=== PATIENT | male | born 1950 | race Caucasian/White ===

== ENCOUNTER 2024-05-07 20:05 | Outpatient (CLI) | payer BC, MEDICARE, SELFPAY ==
--- OUTSIDE RECORDS SUMMARY | 2024-05-07 20:13 | XMS_ITS | Clinical Summary ---
Author Organization [facility] Address [place], [place] [address] Care Team Providers Care Packing House Supervisor Name Role Phone Jaya Coughlin MD Unavailable Abby Thomas GREEN MEAT GRADER Unavailable Unavail able Marycarmen Pimentel NP Unavailable [phone] Aristides Ventura Unavailable [phone] Natalie Artis Unavailable [phone] Maria Jin Unavailable Boyd Edwards MD Unavailable Pcp, No Primary Care Provider Unavailabl e Allergies Active Allergy Reactions Criticality Noted Date Comments Blood-Group Specific Substance Other - Describe In Comment Field 02/23/2024 Patient has an anti-M antibody. Blood products may be delayed. Draw patient 24 hours prior to transfusion. For LurnQ testing, draw one red top and two purple top tubes for all Type and Screen orders. Penicillins *Unknown - Childhood Rxn 09/02/2015 Patient tolerates amoxicillin Medications Medication Sig Dispensed Refills Start Date End Date Status vitamin e 100 unit capsule Take 1 capsule by mouth once daily. 0 09/12/2015 Active ascorbic acid, vitamin C, (Vitamin C) 1,000 mg tablet Take 1 Tablet (1,000 mg) by mouth once daily. 0 06/02/2023 Active cholecalciferol (Vitamin D-3) 2,000 unit capsule Take 4,000 units by mouth once daily. 0 06/02/2023 Active multivitamin (MVI) tablet Take 1 Tablet by mouth once daily. 0 06/02/2023 Active atorvastatin (LIPITOR) 40 mg tabletIndications :Acute on chronic systolic congestive heart failure (HC) Take 1 Tablet (40 mg) by mouth at bedtime. 90 Tablet 3 03/21/2024 Active colchicine 0.6 mg tabletIndications :Pericardial effusion Take 1 Tablet (0.6 mg) by mouth two times daily. 180 Tablet 3 03/21/2024 Active magnesium oxide (MAG-OX 400) 400 mg tabletIndications :Paroxysmal A-fib (HC) Take 1 Tablet (400 mg) by mouth once daily. 90 Tablet 3 03/21/2024 Active Eliquis 5 mg tabletIndications :Paroxysmal A-fib (HC) Take 1 Tablet (5 mg) by mouth two times daily. Hold this medication as of 03/10/24 and resume on 03/15/24. 180 Tablet 3 03/21/2024 Active lisinopriL (PRINIVIL; ZESTRIL) 2.5 mg tabletIndications :Cardiac sarcoidosis Take 1 Tablet (2.5 mg) by mouth once daily. 90 Tablet 3 03/21/2024 Active metoprolol succinate (TOPROL XL) 50 mg sustained-release tabletIndications :Paroxysmal A-fib (HC) Take 3 Tablets (150 mg) by mouth once daily. 270 Tablet 3 03/21/2024 Active potassium chloride (KLOR-CON M10) 10 mEq extended-release tablet (part/cryst)Indic ations:Cardiac sarcoidosis Take 1 Tablet (10 mEq) by mouth once daily with a meal. 90 Tablet 3 03/21/2024 Active spironolactone (ALDACTONE) 25 mg tabletIndications :Cardiac sarcoidosis Take 0.5 Tablets (12.5 mg) by mouth once daily in the morning. 45 Tablet 3 03/21/2024 Active empagliflozin (JARDIANCE) 10 mg tabletIndications :Chronic systolic heart failure (HC) Take 1 Tablet (10 mg) by mouth once daily. 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 04/09/2024 Active empagliflozin (JARDIANCE) 10 mg tabletIndications :Chronic systolic heart failure (HC) Take 1 Tablet (10 mg) by mouth once daily. 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) 10/28/2015 Overview: Coordinator, Darlene Diana [phone] Left bundle branch block (LBBB) 10/01/2015 Hyperlipidemia 09/02/2015 Tobacco use disorder 11/02/2005 Overview: Overview: LW Onset: ; Tobacco Abuse Resolved Problems Problem Noted Date Diagnosed Date Resolved Date Cardiac sarcoidosis 08/31/2016 06/27/20 17 Cellulitis and abscess of leg, except foot 08/02/2007 06/03/2023 Encounters Date Type Department Care Team Description 04/26/2024 10:30 AM CDT Home Care Visit [address] [address] Sanna Liu RN SN - OASIS DISCHARGE 04/20/2024 2:30 PM CDT Home Care Visit [facility] [address] [place] [address] Sanna Liu RN SN - HOME VISIT 04/17/2024 2:30 PM CDT Office Visit [address] [place] [address] Marcie Jarvis, SANDRA Telehealth 04/17/2024 11:30 AM CDT Home Care Visit [facility] [address] [place] [address] Sanna Liu RN SN - HOME VISIT 04/16/2024 9:47 AM CDT Anesthesia Event [facility] [address] [place] [address] Joe Menendez MD 04/16/2024 7:04 AM CDT - 04/16/2024 11:15 AM CDT Hospital Encounter [facility] [address] [place] [address] Francoise Hannon NP Discharge Disposition: Home Self Care 04/16/2024 Travel 04/12/2024 12:30 PM CDT Home Care Visit [facility] [address] [place] [address] Sanna Liu RN SN - HOME VISIT 04/10/2024 12:30 PM CDT Home Care Visit [facility] [address] [place] [address] Sanna Liu RN SN - HOME VISIT 04/09/2024 10:30 AM CDT Office Visit [facility] [address] [place] [phone] Kaila Alexis NP Follow Up 04/09/2024 8:50 AM CDT Orders Only [facility] [address] [place] [address] Lab 04/09/2024 Travel 04/09/2024 Telephone [facility] [address] [place] [phone] Francoise Hannon NP Pre Procedure; Letter; Education 04/06/2024 Telephone [facility] [address] [place] [phone] Boyd Edwards MD Follow Up (Atrial fibrillation ) 04/06/2024 Telephone [facility] [address] [place] [address] Francoise Hannon NP Error-please disregard 04/06/2024 Telephone [facility] [address] [place] [address] Kaila Alexis NP Results (BMP) 04/05/2024 2:20 PM CDT Phone Office Visit [facility] [address] [place] [address] Francoise Hannon NP Phone Visit 04/05/2024 1:10 PM CDT Orders Only [facility] [address] [place] [address] Lab 04/05/2024 11:00 AM CDT Nurse/Clinic Staff Only [facility] [address] [place] [address] Cardiovascular Diagnostic Testing (EKG) 04/05/2024 Travel 04/04/2024 1:30 PM CDT Home Care Visit [address] [address] Sanna Liu RN SN - HOME VISIT 04/04/2024 Telephone [facility] [address] [place] [address] Boyd Edwards MD Results (Holter) 04/02/2024 2:00 PM CDT Home Care Visit [address] [address] Sanna Liu RN SN - HOME VISIT 03/29/2024 Home Care Visit [address] [address] Coral Cisse RN SN - MISSED VISIT 03/28/2024 3:00 PM CDT Home Care Visit [place] [address] [place] [address] Alannah Clifford, PT PT - INITIAL ASSESSMENT 03/28/2024 8:25 AM CDT - 03/28/2024 11:59 PM CDT Hospital Encounter [facility] [address] [place] [address] 03/28/2024 Refill [facility] [address] [place] [phone] Kaila Alexis, SANRDA Refill Request 03/27/2024 2:00 PM CDT Nurse/Clinic Staff Only [address] [phone] Device Check (Return) 03/27/2024 Telephone [facility] [address] [place] [phone] Boyd Edwards MD Home Care ([facility] Orders Signed) 03/26/2024 1:15 PM CDT Nurse/Clinic Staff Only [address] [phone] Ivoryt, Vanessa Clinical Device Check (--24-hour holter placement) 03/26/2024 Travel 03/26/2024 Home Care Visit [address] [address] Coral Cisse RN SN - MISSED VISIT 03/25/2024 Home Care Visit [address] [address] Cindy Carolina, PT CARE COORDINATION 03/23/[address] [phone] Mary Acevedo MD Failed Appointment 03/22/2024 11:30 AM CDT Home Care Visit [address] [address] Shantel Miller, ALCIRA SN - OASIS RESUMPTION OF CARE 03/21/2024 1:00 PM CDT Office Visit [address] [place] [address] Kaila Alexis, SANDRA Concerns (Madinat denies chest pain and dizziness /Patient states he has some shortness of breath with exertion ) 03/20/2024 11:20 AM CDT Orders Only [address] [address] Lab, Appv Lab 03/20/2024 10:45 AM CDT Office Visit [address] [address] Mary Acevedo MD Hospital F/U (Patient was seen in ED 03/13 for Acute systolic (congestive) heart failure.); Establish Care (Patient wants to establish care. ) 03/20/2024 Travel 03/19/2024 Home Care Visit [address] [address] Coral Cisse, RN CARE COORDINATION 03/19/2024 Patient Outreach [address] [address] Marisa Rolon, ALCIRA Primary RN Care Management (LACE 78); Hospital F/U (DOD: 03/16/24, Dx: Acute on chronic systolic heart failure) 03/18/2024 Home Care Visit [address] [address] Destini Sanchez RN CARE COORDINATION 03/18/2024 Home Care Visit [address] [address] Park العلي RN CARE COORDINATION 03/15/[address] [address] Junie Benavides, supervisor paste plant (notification) 03/15/2024 Home Care Visit [address] [address] Sanna Liu RN CARE TRANSITION NOTE 03/15/2024 Home Care Visit [address] [address] Sanna Liu RN SN - OASIS TRANSFER 03/13/2024 3:05 PM CDT - 03/16/2024 3:00 PM CDT Hospital Encounter [facility] [address] [place] [address] Austad, Lory Owusu MD [facility], Hospitalist [facility] Yeison, MD Mian Fisher Ephraim, MD Acute systolic heart failure (HC) (Primary Dx); Acute systolic (congestive) heart failure (HC); 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 77); Hospital F/U (DOD: 03/10/24, Dx: Pericardial effusion with cardiac tamponade) 03/12/2024 1:00 PM CDT Home Care Visit [address] [address] Angelina Murphy, RN SN - OASIS RESUMPTION OF CARE 03/10/2024 Home Care Visit [address] [address] Zainab Sen RN SN - OASIS TRANSFER 03/09/2024 3:00 AM CDT Home Care Visit [address] [address] Alannah Clifford, PT PT - MISSED VISIT 03/09/2024 Telephone [facility] [address] [place] [phone] Boyd Edwards MD Follow Up (Orders for ) 03/08/2024 11:22 AM CDT - 03/10/2024 7:42 PM CDT Hospital Encounter [facility] [address] [place] [address] Nick Ugalde DO Dahl, Pb Guerrero MD [facility], Hospitalist [facility] Vlad, MD Wolf Montero Janet Leslie, MD Pericardial tamponade (Primary Dx); Paroxysmal A-fib (HC); Cardiac sarcoidosis Discharge Disposition: Home Self Care 03/08/2024 7:14 AM CDT - 03/08/2024 11:21 AM CDT Hospital Encounter [facility] [address] [place] [address] Petey Caicedo MBBS Pericardial effusion 03/08/2024 Travel 03/08/2024 Telephone [facility] [address] [place] [phone] Petey Caicedo MBBS Results (Echo) 03/07/2024 2:00 PM CDT Home Care Visit [address] [address] Alannah Clifford, PT PT - HOME VISIT 03/07/2024 12:30 PM CDT Home Care Visit [place] [address] [place] [address] Sanna Liu RN SN - HOME VISIT 03/07/2024 Travel 03/06/2024 3:00 PM CDT Office Visit [facility] [address] [place] [phone] Petey Caicedo MBBS Consult (NTU, labs 1 hr prior 3-5 day post hospital follow up per Jaylon); Concerns (very concerned with SOB, Chest discomfort, fatigued/low stamina ) 03/06/2024 2:00 PM CDT Orders Only [facility] [address] [place] [address] Lab 03/06/2024 12:15 PM CDT Home Care Visit [address] [address] Esthela Foss, RN SN - MISSED VISIT 03/06/2024 Travel 03/03/2024 12:00 PM CDT Home Care Visit [address] [address] Jayashree Woods LPN SHEET METAL FORMER - HOME VISIT 03/03/2024 Patient Outreach [facility] Care Management - Advanced Care Team [address] [place] [address] Crystal Mobley Complex Care Management (CCM Engagement Outreach) 03/02/2024 3:00 PM CDT Home Care Visit [address] [address] Alannah Clifford, PT PT - INITIAL ASSESSMENT 03/02/2024 Home Care Visit [address] [address] Junie Benavides, RN CARE COORDINATION 03/02/2024 Travel 03/01/2024 10:00 AM CDT Home Care Visit [address] [address] Junie Benavides, RN SN - OASIS START OF CARE 03/01/[address] [address] Junie Benavides supervisor paste plant (Orders, medication clarification) 03/01/2024 Plan of Care Documentation [address] [address] 02/29/2024 Home Care Visit [address] [address] Jennifer Red, RN CARE COORDINATION 02/28/2024 Home Care Visit [address] [address] Coral Cisse, RN CARE COORDINATION 02/28/2024 Patient Outreach [facility] Care Management - Care Management Navigation/[place] [id number] [place] [address] Mimi Palacioshel Care Management Intake (Identification Date/) 02/27/2024 Telephone [facility] [address] [facility] [address] [place] [address] Boyd Edwards MD Medication Management (Metoprolol Dose); Follow Up 02/27/2024 Refill [facility] [address] [facility] [address] [place] [address] Jaya Coughlin MD Refill Request (Metoprolol Succinate) 02/27/2024 Telephone [facility] [address] [facility] [address] [place] [address] Petey Caicedo MBBS Lab (BMP, pro-BNP, Mag) 02/27/2024 Telephone [facility] [address] [facility] [address] [place] [address] Angélica Iyer PA Appointment (Post hospital F/U) 02/27/2024 Procedure Only [facility] [address] [facility] [address] [place] [address] Device Check (Remote [employer] ICD... 02/27/2024 Patient Outreach [facility] [address] [place] [phone] Marisa Rolon, ALCIRA Primary RN Care Management (LACE 56); Hospital F/U (DOD: 02/26/24, Dx: S/P ablation of ventricular arrhythmia) 02/27/2024 Refill [facility] [address] [facility] [address] [place] [address] Jaya Coughlin MD Refill Request (Magnesium Oxide) 02/25/2024 Travel 02/24/2024 Procedure Only [facility] [address] [place] [address] Device Check (Remote [employer] ICD... 02/23/2024 Procedure Only [facility] [address] [place] [address] Device Check (Remote Bi-Ventricular ICD La... 02/22/2024 10:55 AM CDT Anesthesia Event [facility] [address] [place] [address] Marcie Garduno MD 02/22/2024 7:19 AM CDT - 02/26/2024 12:37 PM CDT Hospital Encounter [facility] [address] [place] [address] Boyd Edwards MD Weiss, MD Steven Scott, Rhina Carrasco CRNA S/P ablation of ventricular arrhythmia (Primary Dx); Chronic combined systolic and diastolic heart failure (HC); PVC's (premature ventricular contractions); Pericardial effusion Discharge Disposition: Home Health 02/21/2024 10:05 AM CDT - 02/21/2024 11:59 PM CDT Hospital Encounter [facility] [address] [place] [address] Boyd Edwards MD Frequent PVCs; NSVT (nonsustained ventricular tachycardia) (HC); VT (ventricular tachycardia) (HC); Abnormal result of other cardiovascular function study 02/21/2024 Travel 02/21/2024 Procedure Only [facility] [address] [place] [address] Device Check (Pre MRI Checklist) 02/20/2024 Telephone [facility] [address] [place] [address] Boyd Edwards MD Results (Abnormal Echo with Contrast) 02/17/2024 1:56 PM CDT - 02/17/2024 11:59 PM CDT Hospital Encounter [facility] [address] [place] [address] Boyd Edwards MD Frequent PVCs 02/17/2024 Travel 02/14/2024 Telephone [facility] [address] [place] [address] Boyd Edwards MD Follow Up 02/13/2024 9:56 AM CDT - 02/13/2024 11:59 PM CDT Hospital Encounter [facility] [address] [place] [address] Boyd Edwards MD Frequent PVCs; On amiodarone therapy 02/13/2024 Travel 02/09/2024 Telephone [facility] [address] [place] [phone] Boyd Edwards MD Pre Procedure (VT ablation on 02/22/2024); Letter; Education 02/07/2024 9:00 AM CDT Office Visit [facility] [address] [place] [phone] Boyd Edwards MD Consult (New Pt, CELE per Dr Coughlin for high PVC burden, device & ekg prior) 02/07/2024 8:30 AM CDT Nurse/Clinic Staff Only [facility] [address] [place] [address] Cardiovascular Diagnostic Testing (EKG/) 02/07/2024 8:00 AM CDT Procedure Only [facility] [address] [place] [address] Device Check (In-Clinic Med[employer]onic Pacemake... 02/07/2024 Travel 02/06/2024 Orders Only [facility] [address] [place] [address] Jaya Coughlin MD <No scans attached> 02/06/2024 Telephone [facility] [address] [place] [address] Jaya Coughlin MD Results (Holter Monitor and EP consult) from Last 3 Months Immunizations Name Administration Dates Next Due COVID-19 vaccine (Moderna 100mcg/0.5mL) MARANDA BARRAGAN 02/24/2021,01/27/2021 Influenza, High-dose Inactivated 07/18/2017,07/17 Td (Age >=7 Years) 10/25/2001 Tdap 12/25/2022 Family History Medical History Relation Name Comments Cancer Mother unknown Relation Name Status Comments Father Mother Sister Social History Tobacco Use Types Packs/Day Years Used Date Smoking Tobacco: Former Cigarettes 1.5 50 1 - 07/31/2013 Passive Smoke Exposure: Never Smokeless Tobacco: Never Tobacco Cessation:Counseling Given: Not Answered Alcohol Use Standard Drinks/Week Comments Yes 3 (1 standard drink = 0.6 oz pur e alcohol) Social Connections Answer Date Recorded Frequency of Communication with Friends and Fami ly 0 07/15/2023 Financial Resource Strain Answer Date R ecorded Difficulty of Paying Living Expenses 3 07/15/2023 Difficulty of Paying Living Expenses Not on file 07/15/2023 Food Insecurity Answer Date Recorded Worried About Running Out of Food in the Last Ye ar 1 07/15/2023 Transportation Needs Answer Date Record ed Lack of Transportation (Medical) 1 07/15/2023 Housing Stability Answer Date Recorded Unable to Pay for Housing in the Last Year 1 07/15/2023 Sex and Gender Information Value Date Recorded Sex Assigned at Not on file Gender Identity Not on file Sexual Orientation Not on file Obstetrics History Last Filed Vital Signs Vital Sign Reading Time Taken Comments Blood Pressure 100/70 04/26/2024 11:19 AM CDT Pulse 85 04/26/2024 11:19 AM CDT Temperature 36.7 ??C (98.1 ??F) 04/26/2024 1 1:19 AM CDT Respiratory Rate 18 04/26/2024 11:1 9 AM CDT Oxygen Saturation 98% 04/26/2024 11: 19 AM CDT Inhaled Oxygen Concentration - - Weight 102.2 kg (225 lb 6.4 oz) 024 11:19 AM CDT Height 177.8 cm (5' 10) 04/16/2024 7:52 AM CDT Body Mass Index 32.34 04/16/2024 7:52 AM CDT Plan of Treatment Upcoming Encounters Date Type Department Care Team (Late st Contact Info) Description 05/11/2024 Procedure Only [facility] [address] [place] [address] 06/20/2024 1:15 PM CDT Phone Office Visit [facility] [address] [place] [phone] Marcie Jarvis, SANDRA [address] [place] [address] Health Maintenance Due Date Last Done Comments Pneumococcal series for age 65+ (1 of 2 - PCV) 1954 Depression screening for age 12+ 1960 Hepatitis C screening for ag e 18-79 1966 Colonoscopy through age 75 1993 Zoster (shingles) series for age 50+ (1 of 2) 1998 Medicare Wellness for age 65+ 2013 COVID-19 vaccine series ( season) 2023 10/29/2021, 02/24/2021, 01/27/2021 Influenza for age 65+ 06/17/2024 07/18/2017, [address] (for lung CA) ag e 50-80 03/13/2025 03/13/2024, 08/06/2016 BMI (ht and wt on same day) for age 18+ 04/05/2025 04/05/2024, 03/21/2024, 03/06/2024, Additional history exists Lipids for age 45-75 03/01/2027 03/01/2022, 04/21/20 16 Tetanus booster 12/25/2032 12/25/2022, 10/25/2001 Tdap Completed 12/25/2022 Medical Devices Implanted Type Area Compliance Professional Device Identifier Shelf Expiration Date Model / Serial / Lot Big Data Hadoop Developer-D-10/27/2015 Implanted:10/27 (Quantity not on file) MUSIC SUPERVISOR-D [employer] AUTOG [id number] / / Procedures Procedure Name Priority Date/Time Associated Diagnosis Comments EKG 12 LEAD Post Op 04/16/2024 10:04 AM CDT SCAN-CARDIAC STRIP 04/16/2024 10 :02 AM CDT POTASSIUM Preop 04/16/2024 7:25 AM CDT EKG 12 LEAD Preop 04/16/2024 7:20 AM CDT SCAN-CARDIAC STRIP 04/16/2024 12 :00 AM CDT MAGNESIUM STAT 04/09/2024 9:19 AM CDT Chronic combined systolic and diastolic heart failure (HC) PRO-BNP STAT 04/09/2024 9:19 AM CDT Chronic combined systolic and diastolic heart failure (HC) BASIC METABOLIC PANEL STAT 04/09/2024 9:19 AM CDT Chronic combined systolic and diastolic heart failure (HC) BASIC METABOLIC PANEL Routine 04/05/2024 11:45 AM CDT Acute on chronic systolic congestive heart failure (HC) EKG 12 LEAD Routine 04/05/2024 11:20 AM CDT Paroxysmal A-fib (HC) HOLTER MONITOR 24 HOURS Routine 03/30/2024 Chronic combined systolic and diastolic heart failure (HC) PVC's (premature ventricular contractions) NSVT (nonsustained ventricular tachycardia) (HC) SCAN-HOLTER MONITOR 03/27/2024 1 2:00 AM CDT ISTAT CHEM 8 CLINIC ONLY AND [facility] Routine 03/20/2024 11:14 AM CDT Acute on chronic congestive heart failure, unspecified heart failure type (HC) MAGNESIUM STAT 03/20/2024 11:08 AM CDT Acute on chronic systolic congestive heart failure (HC) PRO-BNP STAT 03/20/2024 11:08 AM CDT Acute on chronic systolic congestive heart failure (HC) BASIC METABOLIC PANEL STAT 03/20/2024 11:08 AM CDT Acute on chronic systolic congestive heart failure (HC) SCAN-CARDIAC STRIP 03/16/2024 7: 45 AM CDT POTASSIUM Early AM 03/16/2024 7:23 AM CDT MAGNESIUM Early AM 03/16/2024 7:23 AM CDT SCAN-CARDIAC STRIP 03/16/2024 12 :00 AM CDT SCAN-CARDIAC STRIP 03/15/2024 3: 32 PM CDT SCAN-CARDIAC STRIP 03/15/2024 1: 41 PM CDT POTASSIUM Timed 03/15/2024 1:33 PM CDT SEDIMENTATION RATE Early AM 03/15/2024 6: 39 AM CDT CREATININE Early AM 03/15/2024 6:38 AM CDT POTASSIUM Early AM 03/15/2024 6:38 AM CDT MAGNESIUM Early AM 03/15/2024 6:38 AM CDT SCAN-CARDIAC STRIP 03/15/2024 12 :51 AM CDT SCAN-CARDIAC STRIP 03/14/2024 4: 00 PM CDT ECHO TTE LIMITED W CONTRAST Routine 03/14/2024 2:09 PM CDT SCAN-CARDIAC STRIP 03/14/2024 12 :11 PM CDT C-REACTIVE PROTEIN CELE 03/14/2024 5: 58 AM CDT MAGNESIUM Early AM 03/14/2024 5:58 AM CDT CREATININE Early AM 03/14/2024 5:58 AM CDT POTASSIUM Early AM 03/14/2024 5:58 AM CDT SODIUM Early AM 03/14/2024 5:58 AM CDT PLATELET COUNT Early AM 03/14/2024 5:57 AM CDT HEMOGLOBIN Early AM 03/14/2024 5:57 AM CDT WHITE BLOOD COUNT Early AM 03/14/2024 5:5 7 AM CDT SCAN-CARDIAC STRIP 03/14/2024 3: 57 AM CDT SCAN-CARDIAC STRIP 03/13/2024 10 :[address] CHEST PE STUDY STAT 03/13/2024 5:3 4 PM CDT TROPONIN T (HS) ONE TIME Timed 03/13/2024 4:20 PM CDT XR CHEST 1 VIEW PORTABLE STAT 03/13/2024 4:01 PM CDT EXTRA TUBE BLUE Today 03/13/2024 2:08 PM CDT BASIC METABOLIC PANEL STAT 03/13/2024 2:08 PM CDT TROPONIN T (HS) ACUTE W/2HR REFLEX STAT 03/13/2024 2:08 PM CDT PRO-BNP STAT 03/13/2024 2:08 PM CDT CBC W PLT NO DIFF STAT 03/13/2024 2:0 8 PM CDT EKG 12 LEAD STAT 03/13/2024 2:02 PM CDT SCAN-CARDIAC STRIP 03/10/2024 5: 20 PM CDT SCAN-CARDIAC STRIP 03/10/2024 10 :54 AM CDT SCAN-CARDIAC STRIP 03/09/2024 7: 51 PM CDT GLUCOSE METER Timed 03/09/2024 5:10 PM CDT EKG 12 LEAD Early AM 03/09/2024 9:00 AM CDT ECHO TTE LIMITED W CONTRAST W COLOR W DOPPLER Routine 03/09/2024 8:51 AM CDT SCAN-CARDIAC STRIP 03/09/2024 2: 59 AM CDT SCAN-ELECTROCARDIOGRAM EKG 03/09/2024 12:00 AM CDT ECHO TTE LIMITED WO CONTRAST W BUBBLE Routine 03/08/2024 6:36 PM CDT PATH NON SPEECH PATHOLOGIST ASSISTANT CYTOLOGY Today 03/08/2024 6:33 PM CDT PH,BODY FLUID Today 03/08/2024 6:00 PM CDT AMYLASE,BODY FLUID Today 03/08/2024 6: 00 PM CDT PROTEIN,BODY FLUID Today 03/08/2024 6: 00 PM CDT GLUCOSE,BODY FLUID Today 03/08/2024 6: 00 PM CDT ANAEROBIC CULTURE Today 03/08/2024 6:0 0 PM CDT AFB CULTURE, STAIN Today 03/08/2024 6: 00 PM CDT FUNGUS CULT, OTHER SOURCE Today 03/08/2024 6:00 PM CDT BODY FLUID CULTURE,STAIN (AEROBIC) Today 03/08/2024 6:00 PM CDT SPECIFIC GRAVITY,BODY FL Today 03/08/2024 6:00 PM CDT BODY FLUID CELL COUNT/DIF Today 03/08/2024 6:00 PM CDT CVL OTHER PROCEDURE Routine 03/08/2024 5 :22 PM CDT SCAN-CARDIAC STRIP 03/08/2024 4: 53 PM CDT SCAN-CARDIAC STRIP 03/08/2024 4: 53 PM CDT TROPONIN T (HS) ONE TIME Timed 03/08/2024 2:58 PM CDT XR CHEST 1 VIEW PORTABLE STAT 03/08/2024 12:33 PM CDT PRO-BNP CELE 03/08/2024 12:25 PM CDT CBC WITH AUTO DIFFERENTIAL STAT 03/08/2024 12:25 PM CDT TROPONIN T (HS) ACUTE W/2HR REFLEX STAT 03/08/2024 12:25 PM CDT PROTIME-INR STAT 03/08/2024 12:25 PM CDT BASIC METABOLIC PANEL STAT 03/08/2024 12:25 PM CDT CBC WITH AUTO DIFFERENTIAL STAT 03/08/2024 12:25 PM CDT EKG 12 LEAD STAT 03/08/2024 12:13 PM CDT ECHO TTE LIMITED WO CONTRAST W COLOR W LTD DOPPLER CELE 03/08/2024 8:31 AM CDT Pericardial effusion MAGNESIUM STAT 03/06/2024 2:07 PM CDT Chronic combined systolic and diastolic heart failure (HC) PRO-BNP STAT 03/06/2024 2:07 PM CDT Chronic combined systolic and diastolic heart failure (HC) BASIC METABOLIC PANEL STAT 03/06/2024 2:07 PM CDT Chronic combined systolic and diastolic heart failure (HC) SCAN-CARDIAC STRIP 02/26/2024 8: 07 AM CDT SCAN-CARDIAC STRIP 02/26/2024 1: 04 AM CDT SCAN-CARDIAC STRIP 02/25/2024 7: 35 PM CDT SCAN-CARDIAC STRIP 02/25/2024 10 :38 AM CDT EKG 12 LEAD STAT 02/25/2024 10:31 AM CDT EKG 12 LEAD STAT 02/25/2024 10:12 AM CDT ECHO TTE LIMITED WO CONTRAST W COLOR W LTD DOPPLER Routine 02/25/2024 9:51 AM CDT CBC W PLT NO DIFF Early AM 02/25/2024 6:3 4 AM CDT BASIC METABOLIC PANEL Early AM 02/25/2024 6:34 AM CDT SCAN-CARDIAC STRIP 02/25/2024 12 :05 AM CDT SCAN-CARDIAC STRIP 02/24/2024 3: 35 PM CDT SCAN-CARDIAC STRIP 02/24/2024 1: 09 PM CDT SCAN-CARDIAC STRIP 02/24/2024 8: 00 AM CDT CBC W PLT NO DIFF Early AM 02/24/2024 5:1 1 AM CDT BASIC METABOLIC PANEL Early AM 02/24/2024 5:11 AM CDT SCAN-CARDIAC STRIP 02/24/2024 12 :05 AM CDT ECHO TTE LIMITED W CONTRAST W COLOR W DOPPLER Routine 02/23/2024 3:40 PM CDT URINALYSIS MICROSCOPIC Timed 1:25 PM CDT URINE CULTURE Today 02/23/2024 1:25 PM CDT UA W/ SEDIMENT EXAM REFLEXED PER CRITERIA Today 02/23/2024 1:25 PM CDT XR CHEST 1 VIEW PORTABLE Routine 02/23/2024 1:02 PM CDT EKG 12 LEAD CELE 02/23/2024 12:53 PM CDT SCAN-CARDIAC STRIP 02/23/2024 10 :37 AM CDT ARTERIAL BLOOD GAS CELE 02/23/2024 8: 00 AM CDT CBC W PLT NO DIFF Today 02/23/2024 7:3 3 AM CDT BASIC METABOLIC PANEL Today 02/23/2024 7:33 AM CDT EKG 12 LEAD Early AM 02/23/2024 6:22 AM CDT SCAN-CARDIAC STRIP 02/23/2024 12 :46 AM CDT SCAN-PACER 02/23/2024 12:00 AM CDT SCAN-PACER 02/23/2024 12:00 AM CDT CBC W PLT NO DIFF Timed 02/22/2024 11: 38 PM CDT GLUCOSE METER Timed 02/22/2024 7:54 PM CDT HCHG ACTIVATED CLOTTING TM CV Timed 02/22/2024 5:34 PM CDT HCHG ACTIVATED CLOTTING TM CV Timed 02/22/2024 5:18 PM CDT HCHG ACTIVATED CLOTTING TM CV Timed 02/22/2024 5:02 PM CDT HCHG ACTIVATED CLOTTING TM CV Timed 02/22/2024 4:46 PM CDT ARTERIAL LINE Routine 02/22/2024 4:03 PM CDT ARTERIAL LINE Routine 02/22/2024 4:03 PM CDT ARTERIAL LINE Routine 02/22/2024 4:03 PM CDT ARTERIAL LINE Routine 02/22/2024 4:03 PM CDT ARTERIAL LINE Routine 02/22/2024 4:03 PM CDT ARTERIAL LINE Routine 02/22/2024 4:03 PM CDT HCHG ACTIVATED CLOTTING TM CV Timed 02/22/2024 2:56 PM CDT HCHG ACTIVATED CLOTTING TM CV Timed 02/22/2024 2:40 PM CDT HCHG ACTIVATED CLOTTING TM CV Timed 02/22/2024 2:08 PM CDT HCHG ACTIVATED CLOTTING TM CV Timed 02/22/2024 1:46 PM CDT HCHG ACTIVATED CLOTTING TM CV Timed 02/22/2024 1:16 PM CDT HCHG ACTIVATED CLOTTING TM CV Timed 02/22/2024 12:50 PM CDT HCHG ACTIVATED CLOTTING TM CV Timed 02/22/2024 12:30 PM CDT HCHG ACTIVATED CLOTTING TM CV Timed 02/22/2024 12:14 PM CDT HCHG ACTIVATED CLOTTING TM CV Timed 02/22/2024 11:59 AM CDT EP STUDY /ABLATION Routine 02/22/2024 11 :43 AM CDT ENDOTRACHEAL TUBE Routine 02/22/2024 11: 23 AM CDT ENDOTRACHEAL TUBE Routine 02/22/2024 11: 23 AM CDT ENDOTRACHEAL TUBE Routine 02/22/2024 11: 23 AM CDT ARC STAT CHARGE CELE 02/22/2024 10:13 AM CDT ARC ANTIGEN TYPE CELE 02/22/2024 10:1 3 AM CDT RED BLOOD CELLS EA UNIT CELE 02/22/2024 10:13 AM CDT DONOR ANTIGEN CELE 02/22/2024 10:13 AM CDT PREWARM TECHNIQUE CELE 02/22/2024 10: 13 AM CDT PANEL-ABBREVIATED CELE 02/22/2024 10: 13 AM CDT ANTIBODY IDENTIFICATION EACH PANEL CELE 02/22/2024 10:13 AM CDT RED BLOOD CELLS EA UNIT CELE 02/22/2024 10:13 AM CDT M ANTIGEN TYPE LAB USE ONLY CELE 02/22/2024 10:13 AM CDT ANTIBODY IDENTIFICATION LAB USE ONLY CELE 02/22/2024 10:13 AM CDT TYPE & SCREEN CELE 02/22/2024 10:13 AM CDT EKG 12 LEAD Preop 02/22/2024 7:39 AM CDT CBC W PLT NO DIFF Preop 02/22/2024 7:3 7 AM CDT BASIC METABOLIC PANEL Preop 02/22/2024 7:37 AM CDT SCAN-CARDIAC STRIP 02/22/2024 12 :00 AM CDT SCAN-CARDIAC STRIP 02/22/2024 12 :00 AM CDT SCAN-CARDIAC STRIP 02/22/2024 12 :[address] CARDIAC MORPHOLOGY W DUAL READ STAT 02/21/2024 10:55 AM CDT Frequent PVCs NSVT (nonsustained ventricular tachycardia) (HC) VT (ventricular tachycardia) (HC) Abnormal result of other cardiovascular function study CREATININE,ISTAT Routine 02/21/2024 10:1 8 AM CDT ECHO TECHNICAL REPEAT CELE 02/17/2024 2:59 PM CDT Frequent PVCs ECHO TTE COMPLETE WO CONTRAST CELE 02/13/2024 10:55 AM CDT 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 Interpretation Atrial-sense d ventricular- paced rhythm Biventricula r pacemaker detected Abnormal ECG BEYOND NOW Ventricular Rate 73 BPM BEYOND NOW Atrial Rate 73 BPM BEYOND NOW P-R Interval 152 ms BEYOND NOW QRS Duration 160 ms BEYOND NOW QT 506 ms BEYOND NOW QTc 557 ms BEYOND NOW P [place] 49 degrees BEYOND NOW R [place] 266 degrees BEYOND NOW T [place] 75 degrees BEYOND NOW 04/16/2024 10:0 4 AM CDT 04/16/2024 10:09 AM CDT Francoise Hannon NP EKG ORD BEYOND NOW [place], [place] * SCAN-CARDIAC STRIP (04/16/2024 10:02 AM CDT) Scanner OTHER * POTASSIUM (04/16/2024 7:25 AM CDT) Only the most recent of5 resultswithin the time period is included. POTASSIUM 4.1 3.5 - 5.1 mmol/L 04/16/2024 8:06 AM CDT [facility] Blood BLOOD SPECIMEN / Unknown Venipuncture / Unknown 04/16/2024 7:25 AM CDT 04/16/2024 7:34 AM CDT Francoise Hannon NP CHEMISTRY [facility] SENDOUT INTERNAL ZIP [phone] [place] [address] * SCAN-CARDIAC STRIP (04/16/2024 12:00 AM CDT) Narrative 04/16/2024 12:00 AM CDT Ordered by an unspecified provider. Other Clinical Staff OTHER * (ABNORMAL) PRO-BNP (04/09/2024 9:19 AM CDT) Only the most recent of5 resultswithin the time period is included. PRO-BNP 956(H) <450 pg/mL 04/09/2024 10:15 AM CDT [facility] Blood BLOOD SPECIMEN / Unknown Venipuncture / Unknown 04/09/2024 9:19 AM CDT 04/09/2024 9:20 AM CDT Narrative [facility] - 04/09/2024 10:15 AM CDT The following cut-points have been suggested for the use of proBNP for the diagnostic evaluation of heart failure (HF) in patient with acute dyspnea. Patients with eGFR >= 60 Diagnosis (rule in CHF) ? <50 Years Old ?450 pg/mL 50 - 75 Years Old ?900 pg/mL >75 Years Old ? 1800 pg/mL Exclusion (rule out CHF) Age Independent ?300 pg/mL A cutoff of 1200 pg/mL for patients with an eGFR <60 yields a diagnostic sensitivity of 89% and specificity of 72% for acute congestive heart failure. ? Kaila Alexis [employer] Performing Organization Address [facility]/ZIP Co de Phone Number [facility] SENDOUT INTERNAL ZIP [phone] [place] [address] * (ABNORMAL) MAGNESIUM (04/09/2024 9:19 AM CDT) Only the most recent of6 resultswithin the time period is included. MAGNESIUM 2.6(H) 1.6 - 2.4 mg/dL 04/09/2024 10:12 AM CDT [facility] Blood BLOOD SPECIMEN / Unknown Venipuncture / Unknown 04/09/2024 9:19 AM CDT 04/09/2024 9:20 AM CDT Kaila Alexis NP CHEMISTRY Performing Organization Address [facility] Co de Phone Number [facility] SENDOUT INTERNAL ZIP [phone] [place] [address] * (ABNORMAL) BASIC METABOLIC PANEL (04/09/2024 9:19 AM CDT) Only the most recent of10 resultswithin the time period is included. SODIUM 138 136 - 145 mmol/L 04/09/2024 10:12 AM T [facility] POTASSIUM 4.1 3.5 - 5.1 mmol/L 04/09/2024 10:12 AM T [facility] CHLORIDE 99 98 - 107 mmol/L 04/09/2024 10:12 AM T [facility] CO2,TOTAL 30(H) 22 - 29 mmol/L 04/09/2024 10:12 AM T [facility] ANION GAP 9 5 - 18 04/09/2024 10:12 AM T [facility] GLUCOSE 130(H) 70 - 99 mg/dL 04/09/2024 10:12 AM T [facility] CALCIUM 9.2 8.8 - 10.2 mg/dL 04/09/2024 10:12 AM T [facility] BUN 18 8 - 23 mg/dL 04/09/2024 10:12 AM CDT [facility] CREATININE 1.28(H) 0.70 - 1.20 mg/dL 04/09/2024 10:12 AM CDT [facility] BUN/CREAT RATIO 14 10 - 20 4 10:12 AM CDT [facility] eGFR 58(L) >90 mL/min/1.7 3m2 04/09/2024 10:12 AM CDT [facility] Comment:As of 2021, eG FR is calculated by the CKD-EPI creatinine equation without race adjustment. ??eGFR can be influenced by muscle mass, exercise, and diet. ??The reported eGFR is an estimation only and is only applicable if the renal function is stable. Blood BLOOD SPECIMEN / Unknown Venipuncture / Unknown 04/09/2024 9:19 AM CDT 04/09/2024 9:20 AM CDT Kaila Alexis NP CHEMISTRY [facility] SENDOUT INTERNAL ZIP [phone] [place] [address] * HOLTER MONITOR 24 HOURS (03/30/2024) Boyd Edwards MD CARDIAC SERVICES ORD * SCAN-HOLTER MONITOR (03/27/2024 12:00 AM CDT) Scanner OTHER * (ABNORMAL) ISTAT CHEM 8 (SELECTED SITES ONLY) (03/20/2024 11:14 AM CDT) SODIUM, POCT 136 135 - 145 mmol/L 03/20/2024 11:22 AM CDT [facility] POTASSIUM, POCT 4.2 3.5 - 5.0 mmol/L 03/20/2024 11:22 AM CDT [facility] CHLORIDE, POCT 98 98 - 107 mmol/L 03/20/2024 11:22 AM CDT [facility] CO2,TOTAL, POCT 28 21 - 31 mmol/L 03/20/2024 11:22 AM CDT [facility] ANION GAP, POCT 16 5 - 18 4 11:22 AM CDT [facility] GLUCOSE, POCT 173(H) 70 - 99 mg/dL 03/20/2024 11:22 AM CDT [facility] IONIZED CALCIUM, POCT 1.12(L) 1.15 - 1.27 mmol/L 03/20/2024 11:22 AM CDT [facility] BUN, POCT 30(H) 8 - 25 mg/dL 03/20/2024 11:22 AM CDT [facility] CREATININE, POCT 1.40(H) 0.57 - 1.11 mg/dL 03/20/2024 11:22 AM CDT [facility] Comment:Caution: Patients ta susan Hydroxyurea have falsely increased iStat Creatinine results. Verify creatinine results ordering a Creatinine (70925.2) BUN/CREAT RATIO, POCT 21(H) 10 - 20 03/20/2024 11:22 AM CDT [facility] eGFR 52(L) >90 mL/min/1.7 3m2 03/20/2024 11:22 AM CDT [facility] Comment:As of 2021, eG FR is calculated by the CKD-EPI creatinine equation without race adjustment. eGFR can be influenced by muscle mass, exercise, and diet. The reported eGFR is an estimation only and is only applicable if the renal function is stable. Blood BLOOD SPECIMEN / Unknown 03/20/2024 11:14 AM CDT 03/20/2024 11:22 AM CDT Mary Acevedo MD CHEMISTRY [facility] [id number] [place] [address], * SCAN-CARDIAC STRIP (03/16/2024 7:45 AM CDT) Scanner OTHER * SCAN-CARDIAC STRIP (03/16/2024 12:00 AM CDT) Scanner OTHER * SCAN-CARDIAC STRIP (03/15/2024 3:32 PM CDT) Scanner OTHER * SCAN-CARDIAC STRIP (03/15/2024 1:41 PM CDT) Scanner OTHER * SEDIMENTATION RATE (03/15/2024 6:39 AM CDT) SEDIMENTATION RATE 18 <20 mm/hr 2023 7:05 AM CDT [facility] Blood BLOOD SPECIMEN / Unknown Venipuncture / Unknown 03/15/2024 6:39 AM CDT 03/15/2024 6:45 AM CDT Mikey Pappas MD HEMATOLOGY Performing Organization Address [facility]/ZIP Co de Phone Number [facility] SENDOUT INTERNAL ZIP [phone] [place] [address] * (ABNORMAL) CREATININE (03/15/2024 6:38 AM CDT) Only the most recent of2 resultswithin the time period is included. eGFR 89(L) >90 mL/min/1.7 3m2 03/15/2024 7:18 AM CDT [facility] Comment:As of 2021, eG FR is calculated by the CKD-EPI creatinine equation without race adjustment. ??eGFR can be influenced by muscle mass, exercise, and diet. ??The reported eGFR is an estimation only and is only applicable if the renal function is stable. CREATININE 0.90 0.70 - 1.20 mg/dL 03/15/2024 7:18 AM CDT [facility] Blood BLOOD SPECIMEN / Unknown Venipuncture / Unknown 03/15/2024 6:38 AM CDT 03/15/2024 6:45 AM CDT Mikey Pappas MD CHEMISTRY Performing Organization Address [facility]/ZIP Co de Phone Number [facility] SENDOUT INTERNAL ZIP [phone] [place] [address] * SCAN-CARDIAC STRIP (03/15/2024 12:51 AM CDT) Scanner OTHER * SCAN-CARDIAC STRIP (03/14/2024 4:00 PM CDT) Scanner OTHER * ECHO TTE LIMITED W CONTRAST (03/14/2024 2:09 PM CDT) Only the most recent of6 resultswithin the time period is included. EJECTION FRACTION 20-25% PROSOLV Anatomical Region Laterality Modality Ultrasound 03/14/2024 1:48 PM CDT Narrative 03/14/2024 4:30 [place] [address] Main: [email or web address] ? 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 BP: 98 / 67 Weight: 237 lbs BMI: 34 kg/m?? HR: 90 Location: Inpatient (Portable) Rhythm: Artificially Paced Procedure Components: Limited 2D imaging with contrast, Color Doppler, Limited Spectral Doppler Indications: CAD unspecified Technical Quality: Fair Contrast: Definity Constrast Dose (ml): .30 [facility]#: [id number] Final Conclusion Previous Study: 03/09/2024 1. Severe left ventricular chamber enlargement.Severely decreased left ventricular systolic function.Calculated left ventricular ejection fraction (modified Stone technique) is 21%. 2. Severe generalized left ventricular hypokinesis.abnormal ventricular septal motion. 3. Right ventricle was not well visualized.Right ventricle systolic function appears mildly decreased. 4. Cannot rule out constrictive physiology. Assessment is difficult with underlying afib and V paced rhythm. Abnormal ventricular septal diastolic motion (bounce). Respiratory variation in mitral inflow noted. 5. Borderline dilated inferior vena cava with decreased collapse. 6. No pericardial effusion. When compared to the previous echocardiographic images of 03/09/2024, there has been no significant change. Estimated EF: 20-25% FINDINGS Left Ventricle severe left ventricular chamber enlargement. Mildly increased left ventricular wall thickness. Severely decreased left ventricular systolic function. Calculated left ventricular ejection fraction (modified Stone technique) is 21%. Severe generalized left ventricular hypokinesis.abnormal ventricular septal motion. Diastolic Function Indeterminate left ventricular diastolic function. Right Ventricle Right ventricle was not well visualized. Right ventricle systolic function appears decreased.normal right ventricular chamber size. Left Atrium Borderline left atrial enlargement. Right Atrium Normal right atrial size. Atrial Septum No evidence of inter-atrial shunt by color flow Doppler. Aortic Valve Aortic valve was not well visualized. Trileaflet aortic valve. Aortic valve sclerosis without stenosis. No aortic valve regurgitation. Mitral Valve Mitral annular dilatation. Mildly thickened mitral valve. Trivial calcific mitral valve stenosis. Mitral valve diastolic mean gradient is 3 mmHg (at a HR of 79 bpm). Mitral valve area (PHT) is 3.3 cm??. Moderate mitral valve regurgitation. Tricuspid Valve Tricuspid valve was not well visualized. No tricuspid valve stenosis. Trivial tricuspid valve regurgitation. Pulmonic Valve Pulmonary valve was not assessed. Pericardium No pericardial effusion. ??Possible ??constrictive physiology. Abnormal ventricular septal diastolic motion (bounce). ??Dilated and non-collapsing inferior vena cava. Aorta Aortic sinus of Valsalva is normal in size (3.1 cm, ZScore = -2.9). Ascending aorta was not well visualized. Ascending aorta was not assessed. Inferior Vena Cava Borderline dilated inferior vena cava with decreased collapse. MEASUREMENTS ??(Male / Female) Normal Values 2D MEASUREMENTS AND LV FUNCTION IVS Diastolic Thickness ? 1.17 cm ? < 1.1 cm / < 1.0 cm LV Diastolic Diameter PLAX ?6.51 cm ? 4.2 - 5.9 / 3.9 - 5.3 cm LV Diastolic Diameter Index ? 2.9 cm/m?? LVPW Diastolic Thickness ?1.2 cm ?< 1.1 cm / < 1.0 cm LV Systolic Diameter PLAX ? 5.81 cm LV Systolic Diameter Index ?2.59 cm/m?? LVOT Diameter ? 2.2 cm LVOT Cardiac Output ? 5.27 l/min LVOT Cardiac Index ?2.25 l/min??m?? LVOT Stroke Volume ?58.5 ml Stroke Volume Index ? 25 ml/m?? LV Ejection Fraction MOD BP ? 20.9 % ?>= 55 ??% LV Mass ? 354 g LV Mass Index ? 153 g/m?? Sinuses of Valsalva Diameter(d) ?? 3.1 cm IVC Diameter Expiration ? 2.08 cm DIASTOLOGY Mitral E Point Velocity ? 1.05 m/sec ?0.70 - 1.02 m/sec MV Deceleration Time ?230 msec ?167 - 231 msec LV E' Lateral Velocity ?0.0765 m/sec Mitral E to LV E' Lateral Ratio ?? 13.7 LV E' Septal Velocity ? 0.0568 m/sec Mitral E to LV E' Septal Ratio ?18.5 AORTIC VALVE AV Peak Velocity ?1.45 m/sec ?< 2.0 m/sec AV Peak Gradient ?8.41 mmHg AV Mean Gradient ?6 mmHg AV Velocity Time Integral ? 24 cm LVOT Peak Velocity ?0.951 m/sec LVOT Velocity Time Integral ? 15.4 cm AV Area Cont Eq vti ? 2.44 cm?? AV Area Cont Eq pk ?2.49 cm?? AV Dimensionless Index ?0.642 MITRAL VALVE MV Peak Gradient ?7.62 mmHg MV Mean Gradient ?3 mmHg MV Velocity Time Integral ? 35.7 cm MV Pressure Half Time ? 67.3 msec MV Area PHT ? 3.27 cm?? TRICUSPID VALVE AND ESTIMATED PRESSURES Right Atrial Pressure ? 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 BP: 98 / 67 Weight: 237 lbs BMI: 34 kg/m?? HR: 90 Location: Inpatient (Portable) Rhythm: Artificially Paced Procedure Components: Limited 2D imaging with contrast, Color Doppler,Limited Spectral Doppler Indications: CAD unspecified Technical Quality: Fair Contrast: Definity Constrast Dose (ml): .30 [facility]#: [id number] Final Conclusion Previous Study: 03/09/2024 1. Severe left ventricular chamber enlargement.Severely decreased leftventricular systolic function.Calculated left ventricular ejection fraction (modified Stone technique) is 21%. 2. Severe generalized left ventricular hypokinesis.abnormal ventricularseptal motion. 3. Right ventricle was not well visualized.Right ventricle systolicfunction appears mildly decreased. 4. Cannot rule out constrictive physiology. Assessment is difficult withunderlying afib and V paced rhythm. Abnormal ventricular septal diastolic motion (bounce). Respiratoryvariation in mitral inflow noted. 5. Borderline dilated inferior vena cava with decreased collapse. 6. No pericardial effusion. When compared to the previous echocardiographic images of 03/09/2024,there has been no significant change. Estimated EF: 20-25% FINDINGS Left Ventricle severe left ventricular chamber enlargement. Mildlyincreased left ventricular wall thickness. Severely decreased left ventricular systolic function. Calculated left ventricular ejectionfraction (modified Stone technique) is 21%. Severe generalized left ventricular hypokinesis.abnormal ventricularseptal motion. Diastolic Function Indeterminate left ventricular diastolic function. Right Ventricle Right ventricle was not well visualized. Right ventriclesystolic function appears decreased.normal right ventricular chamber size. Left Atrium Borderline left atrial enlargement. Right Atrium Normal right atrial size. Atrial Septum No evidence of inter-atrial shunt by color flow Doppler. Aortic Valve Aortic valve was not well visualized. Trileaflet aorticvalve. Aortic valve sclerosis without stenosis. No aortic valve regurgitation. Mitral Valve Mitral annular dilatation. Mildly thickened mitral valve.Trivial calcific mitral valve stenosis. Mitral valve diastolic mean gradient is 3 mmHg (at a HR of 79 bpm). Mitral valve area (PHT) is3.3 cm??. Moderate mitral valve regurgitation. Tricuspid Valve Tricuspid valve was not well visualized. No tricuspidvalve stenosis. Trivial tricuspid valve regurgitation. Pulmonic Valve Pulmonary valve was not assessed. Pericardium No pericardial effusion. Possible constrictive physiology.Abnormal ventricular septal diastolic motion (bounce). Dilated and non-collapsing inferior vena cava. Aorta Aortic sinus of Valsalva is normal in size (3.1 cm, ZScore = - 2.9).Ascending aorta was not well visualized. Ascending aorta was not assessed. Inferior Vena Cava Borderline dilated inferior vena cava with decreasedcollapse. MEASUREMENTS (Male / Female) Normal Values 2D MEASUREMENTS AND LV FUNCTION IVS Diastolic Thickness 1.17 cm < 1.1 cm / < 1.0cm LV Diastolic Diameter PLAX 6.51 cm 4.2 - 5.9 / 3.9 -5.3 cm LV Diastolic Diameter Index 2.9 cm/m?? LVPW Diastolic Thickness 1.2 cm < 1.1 cm / < 1.0cm LV Systolic Diameter PLAX 5.81 cm LV Systolic Diameter Index 2.59 cm/m?? LVOT Diameter 2.2 cm LVOT Cardiac Output 5.27 l/min LVOT Cardiac Index 2.25 l/min??m?? LVOT Stroke Volume 58.5 ml Stroke Volume Index 25 ml/m?? LV Ejection Fraction MOD BP 20.9 % >= 55 % LV Mass 354 g LV Mass Index 153 g/m?? Sinuses of Valsalva Diameter(d) 3.1 cm IVC Diameter Expiration 2.08 cm DIASTOLOGY Mitral E Point Velocity 1.05 m/sec 0.70 - 1.02m/sec MV Deceleration Time 230 msec 167 - 231 msec LV E' Lateral Velocity 0.0765 m/sec Mitral E to LV E' Lateral Ratio 13.7 LV E' Septal Velocity 0.0568 m/sec Mitral E to LV E' Septal Ratio 18.5 AORTIC VALVE AV Peak Velocity 1.45 m/sec < 2.0 m/sec AV Peak Gradient 8.41 mmHg AV Mean Gradient 6 mmHg AV Velocity Time Integral 24 cm LVOT Peak Velocity 0.951 m/sec LVOT Velocity Time Integral 15.4 cm AV Area Cont Eq vti 2.44 cm?? AV Area Cont Eq pk 2.49 cm?? AV Dimensionless Index 0.642 MITRAL VALVE MV Peak Gradient 7.62 mmHg MV Mean Gradient 3 mmHg MV Velocity Time Integral 35.7 cm MV Pressure Half Time 67.3 msec MV Area PHT 3.27 cm?? TRICUSPID VALVE AND ESTIMATED PRESSURES Right Atrial Pressure 8 mmHg HCM DATA LVOT ZURI (r) 3.62 mmHg Aortic Root ZScore: -2.93 Nelly Ramos MD (Electronically Signed) [facility] Accredited Site Final Date: 14 Mar 2024 16:30 ICD-10 Codes: 414.00 Sage Latham MD ECHO ORD * SCAN-CARDIAC STRIP (03/14/2024 12:11 PM CDT) Scanner OTHER * SODIUM (03/14/2024 5:58 AM CDT) Pathologist [facility] SODIUM 141 136 - 145 mmol/L 03/14/2024 6:34 AM CDT [facility] Blood BLOOD SPECIMEN / Unknown Venipuncture / Unknown 03/14/2024 5:58 AM CDT 03/14/2024 6:07 AM CDT Sage Latham MD CHEMISTRY [facility] SENDOUT INTERNAL ZIP [phone] [place] [address] * (ABNORMAL) C-REACTIVE PROTEIN (03/14/2024 5:58 AM CDT) C-REACTIVE PROTEIN 2.0(H) <0.5 mg/dL 03/14/2024 8:43 PM CDT [facility] Blood BLOOD SPECIMEN / Unknown Venipuncture / Unknown 03/14/2024 5:58 AM CDT 03/14/2024 6:07 AM CDT Mikey Pappas MD CHEMISTRY Performing Organization Address City/[facility]/ZIP Co de Phone Number [facility] SENDOUT INTERNAL ZIP [phone] [place] [address] * PLATELET COUNT (03/14/2024 5:57 AM CDT) PLATELET COUNT 141 140 - 440 thou/cu mm 03/14/2024 6:16 AM CDT [facility] MPV 9.0 6.5 - 11.0 fL 03/14/2024 6:16 AM CDT [facility] Blood BLOOD SPECIMEN / Unknown Venipuncture / Unknown 03/14/2024 5:57 AM CDT 03/14/2024 6:07 AM CDT Sage Latham MD HEMATOLOGY [facility] SENDOUT INTERNAL ZIP [phone] [place] [address] * WHITE BLOOD COUNT (03/14/2024 5:57 AM CDT) WHITE BLOOD COUNT 7.3 4.5 - 11.0 thou/cu mm 03/14/2024 6:16 AM CDT [facility] NRBC 0.0 % 03/14/2024 6:16 AM CDT [facility] ABS NRBC 0.0 thou /cu mm 03/14/2024 6:16 AM CDT [facility] Blood BLOOD SPECIMEN / Unknown Venipuncture / Unknown 03/14/2024 5:57 AM CDT 03/14/2024 6:07 AM CDT Sage Latham MD HEMATOLOGY [facility] SENDOUT INTERNAL ZIP [phone] [place] [address] * (ABNORMAL) HEMOGLOBIN (03/14/2024 5:57 AM CDT) HEMOGLOBIN 12.4(L) 13.5 - 17.5 g/dL 03/14/2024 6:16 AM CDT [facility] MCV 101(H) 80 - 100 fL 03/14/2024 6:16 AM CDT [facility] Blood BLOOD SPECIMEN / Unknown Venipuncture / Unknown 03/14/2024 5:57 AM CDT 03/14/2024 6:07 AM CDT Sage Lahtam MD HEMATOLOGY [facility] SENDOUT INTERNAL ZIP [phone] [place] [address] * SCAN-CARDIAC STRIP (03/14/2024 3:57 AM CDT) Scanner OTHER * SCAN-CARDIAC STRIP (03/13/2024 10:27 PM CDT) Scanner OTHER * CT CHEST PE STUDY (03/13/2024 5:34 PM CDT) Anatomical Region Laterality Modality CHEST, THORAX, HEART Computed To mography 03/13/2024 5:34 PM CDT Impressions 03/13/2024 6:30 PM CDT 1. ??No pulmonary embolism. 2. ??Cardiac enlargement. Mild pericardial thickening or fluid. 3. ??Small right pleural effusion. 4. ??Mild interstitial opacities bilaterally nonspecific but may be due to mild edema or atelectasis. Narrative 03/13/2024 6:30 PM CDT For Patients: As a result of the Cures Act, medical imaging exams and procedure reports are released immediately into your electronic medical record. You may view this report before your referring provider. If you have questions, please contact your health care provider. EXAM: CT CHEST PE STUDY LOCATION: [facility] DATE: 03/13/2024 INDICATION: Shortness of breath. Recent pericardial effusion with tamponade. Pulmonary embolism (PE) suspected, high prob off anticoagulation. COMPARISON: Chest x-ray 03/13/2024, CT chest 08/06/2016. TECHNIQUE: CT chest pulmonary angiogram during arterial phase injection of IV contrast. Multiplanar reformats and MIP reconstructions were performed. Dose reduction techniques were used. CONTRAST: Omnipaque-350, 80 mL. FINDINGS: ANGIOGRAM CHEST: Pulmonary arteries are moderately well visualized, dependent subsegmental pulmonary arteries right lower lobe not optimally opacified but no definite evidence for pulmonary embolism bilaterally. Stable mild dilatation ascending thoracic aorta measuring 4.1 cm. Aorta not well opacified to assess for dissection. LUNGS AND PLEURA: Small right pleural effusion with right basilar atelectasis. No left effusion. Mild interstitial opacities bilaterally may be due to mild edema or atelectasis. MEDIASTINUM/AXILLAE: Cardiac enlargement. Mild pericardial thickening or fluid. Normal-caliber esophagus. Pacemaker with intracardiac lead wires. CORONARY ARTERY CALCIFICATION: Moderate. UPPER ABDOMEN: Normal. MUSCULOSKELETAL: Degenerative change thoracolumbar spine. Procedure Note Enrique Carl MD - 03/13/2024 For Patients: As a result of the Cures Act, medical imagingexams and procedure reports are released immediately into your electronicmedical record. You may view this report before your referring provider.If you have questions, please contact your health care provider. EXAM: CT CHEST PE STUDY LOCATION: [facility] DATE: 03/13/2024 INDICATION: Shortness of breath. Recent pericardial effusion withtamponade. Pulmonary embolism (PE) suspected, high prob offanticoagulation. COMPARISON: Chest x-ray 03/13/2024, CT chest 08/06/2016. TECHNIQUE: CT chest pulmonary angiogram during arterial phase injection ofIV contrast. Multiplanar reformats and MIP reconstructions were performed.Dose reduction techniques were used. CONTRAST: Omnipaque-350, 80 mL. FINDINGS: ANGIOGRAM CHEST: Pulmonary arteries are moderately well visualized,dependent subsegmental pulmonary arteries right lower lobe not optimallyopacified but no definite evidence for pulmonary embolism bilaterally.Stable mild dilatation ascending thoracic aorta measuring 4.1 cm. Aortanot well opacified to assess for dissection. LUNGS AND PLEURA: Small right pleural effusion with right basilaratelectasis. No left effusion. Mild interstitial opacities bilaterally maybe due to mild edema or atelectasis. MEDIASTINUM/AXILLAE: Cardiac enlargement. Mild pericardial thickening orfluid. Normal-caliber esophagus. Pacemaker with intracardiac lead wires. CORONARY ARTERY CALCIFICATION: Moderate. UPPER ABDOMEN: Normal. MUSCULOSKELETAL: Degenerative change thoracolumbar spine. IMPRESSION: 1. No pulmonary embolism. 2. Cardiac enlargement. Mild pericardial thickening or fluid. 3. Small right pleural effusion. 4. Mild interstitial opacities bilaterally nonspecific but may be due tomild edema or atelectasis. Lory Young MD CT * (ABNORMAL) TROPONIN T (HS) ONE TIME (03/13/2024 4:20 PM CDT) Only the most recent of2 resultswithin the time period is included. TROPONIN T HS 56(H) 6-15 ng/L ng/L 03/13/2024 4:51 PM CDT [facility] Blood BLOOD SPECIMEN / Unknown Non-Lab Venipuncture / Unknown 03/13/2024 4:20 PM CDT 03/13/2024 4:30 PM CDT [facility] Triage CHEMISTRY [facility] SENDOUT INTERNAL ZIP [phone] [place] [address] * XR CHEST 1 VIEW PORTABLE (03/13/2024 4:01 PM CDT) Only the most recent of3 resultswithin the time period is included. Anatomical Region Laterality Modality HEART, THORAX, CHEST Computed Ra diography 03/13/2024 4:01 PM CDT Impressions 03/13/2024 4:03 PM CDT Left pacemaker with leads overlying the right atrium, right ventricle, and coronary sinus. Heart mildly enlarged, unchanged. Lungs are clear. Narrative 03/13/2024 4:03 PM CDT For Patients: As a result of the Cures Act, medical imaging exams and procedure reports are released immediately into your electronic medical record. You may view this report before your referring provider. If you have questions, please contact your health care provider. EXAM: XR CHEST 1 VIEW PORTABLE LOCATION: [facility] DATE: 03/13/2024 INDICATION: SOB COMPARISON: 03/08/2024 Procedure Note Geoffrey Lubin MD - 03/13/2024 For Patients: As a result of the Cures Act, medical imagingexams and procedure reports are released immediately into your electronicmedical record. You may view this report before your referring provider.If you have questions, please contact your health care provider. EXAM: XR CHEST 1 VIEW PORTABLE LOCATION: [facility] DATE: 03/13/2024 INDICATION: SOB COMPARISON: 03/08/2024 IMPRESSION: Left pacemaker with leads overlying the right atrium, right ventricle, andcoronary sinus. Heart mildly enlarged, unchanged. Lungs are clear. Lory Young MD GENERAL IMAGING * (ABNORMAL) TROPONIN T (HS) ACUTE W/2HR REFLEX (03/13/2024 2:08 PM CDT) Only the most recent of2 resultswithin the time period is included. TROPONIN T HS 54(H) 6-15 ng/L ng/L 03/13/2024 2:50 PM CDT [facility] Blood BLOOD SPECIMEN / Unknown Non-Lab Venipuncture / Unknown 03/13/2024 2:08 PM CDT 03/13/2024 2:17 PM CDT [facility] - 03/13/2024 2:50 PM CDT hs-cTnT (Elecsys Troponin T Gen 5) concentration (s) above the sex-specific 99th percentile (16 ng/L or greater for males or 11 ng/L or greater for females) are indicative of myocardial injury. If initial hs-cTnT <=100 ng/L at presentation, a 0h/2h ABSOLUTE (ng/L) delta change (rising or falling) of >=10 ng/L suggests a significant change, whereas a 0h/2h delta change <=3 ng/L suggests no significant change. If initial hs-cTnT >100 ng/L at presentation, a 0h/2h/ RELATIVE (percent, %) delta change of 20% is suggested to distinguish patients with acute vs. chronic myocardial injury. There are multiple etiologies that can cause hs-cTnT increases above the 99th percentile (myocardial injury) other than acute myocardial infarction. Clinical context and careful clinical evaluation are critical for diagnosis and risk-stratification. The diagnosis of acute myocardial infarction requires a rising and/or falling pattern in hs-cTnT concentrations with at least one value above the sex-specific 99th percentile PLUS at least one of the following clinical criteria: ischemic symptoms, new or presumed new significant ST-T wave changes or new LBBB, development of pathological Q waves, imaging evidence of new loss of viable myocardium or new regional wall motion abnormality, or identification of intracoronary atherothrombosis or an acute angiographic culprit on coronary angiography. In appropriate low-risk patients with a non-ischemic electrocardiogram without active chest pain with a symptom onset >3-hours without recurrence, a single initial hs-cTnT<6 ng/L identifies patient with a very low risk in emergency department patient population. [facility] Triage CHEMISTRY Performing Organization Address [facility] Co de Phone Number [facility] SENDOUT INTERNAL ZIP [phone] [place] [address] * EXTRA TUBE BLUE (03/13/2024 2:08 PM CDT) Blood BLOOD SPECIMEN / Unknown Non-Lab Venipuncture / Unknown 03/13/2024 2:08 PM CDT 03/13/2024 2:18 PM CDT Doctor Unknown LABORATORY Performing Organization Address [facility]/ZIP Co de Phone Number [facility] SENDOUT INTERNAL ZIP [phone] [place] [address] * (ABNORMAL) CBC W PLT NO DIFF (03/13/2024 2:08 PM CDT) Only the most recent of6 resultswithin the time period is included. WHITE BLOOD COUNT 6.7 4.5 - 11.0 thou/cu mm 03/13/2024 2:22 PM CDT [facility] RED BLOOD COUNT 3.63(L) 4.30 - 5.90 mil/cu mm 03/13/2024 2:22 PM CDT [facility] HEMOGLOBIN 12.2(L) 13.5 - 17.5 g/dL 03/13/2024 2:22 PM CDT [facility] HEMATOCRIT 35.9(L) 37.0 - 53.0 % 03/13/2024 2:22 PM T [facility] MCV 99 80 - 100 fL 03/13/2024 2:22 PM CDT [facility] MCH 33.6 26.0 - 34.0 pg 03/13/2024 2:22 PM CDT [facility] MCHC 34.0 32.0 - 36.0 g/dL 03/13/2024 2:22 PM CDT [facility] RDW 14.2 11.5 - 15.5 % 03/13/2024 2:22 PM CDT [facility] PLATELET COUNT 159 140 - 440 thou/cu mm 03/13/2024 2:22 PM CDT [facility] MPV 9.0 6.5 - 11.0 fL 03/13/2024 2:22 PM CDT [facility] NRBC 0.0 % 03/13/2024 2:22 PM CDT [facility] ABS NRBC 0.0 thou /cu mm 03/13/2024 2:22 PM CDT [facility] Blood BLOOD SPECIMEN / Unknown Non-Lab Venipuncture / Unknown 03/13/2024 2:08 PM CDT 03/13/2024 2:17 PM CDT Narrative [facility] - 03/13/2024 2:22 PM CDT RN to order if patient presents with shortness of breath or wheezing. [facility] Triage HEMATOLOGY Performing Organization Address [facility] de Phone Number [facility] SENDOUT INTERNAL ZIP [phone] [place] [address] * SCAN-CARDIAC STRIP (03/10/2024 5:20 PM CDT) Scanner OTHER * SCAN-CARDIAC STRIP (03/10/2024 10:54 AM CDT) Scanner OTHER * SCAN-CARDIAC STRIP (03/09/2024 7:51 PM CDT) Scanner OTHER * (ABNORMAL) GLUCOSE METER (03/09/2024 5:10 PM CDT) Only the most recent of2 resultswithin the time period is included. [facility] Signature GLUCOSE METER 130(H) 65 - 100 mg/dL 03/09/2024 5:11 PM CDT [facility] Blood BLOOD SPECIMEN / Unknown 03/09/2024 5:10 PM CDT 03/09/2024 5:11 PM CDT Cb Chu MD CHEMISTRY Performing Organization Address [facility]/ZIP Co de Phone Number [facility] SENDOUT INTERNAL ZIP [phone] [place] [address] * SCAN-CARDIAC STRIP (03/09/2024 2:59 AM CDT) Scanner OTHER * SCAN-ELECTROCARDIOGRAM EKG (03/09/2024 12:00 AM CDT) Narrative 03/09/2024 12:00 AM CDT Ordered by an unspecified provider. Other Clinical Staff OTHER * PATH Non SPEECH PATHOLOGIST ASSISTANT Cytology (03/08/2024 6:33 PM CDT) Pathologist [facility] Case Report Medical Cytology Report ? Case: [id number] ? Authorizing Provider: ??Hebert Peña, ?? Collected: ? 03/08/2024 1833 ? MD ? Ordering Location: ? [facility] ?Received: ?03/08/2024 1920 ? Pathologist: ? Wilmar Ignacio MD ? Specimen: ?Pericardial Effusion ? 03/13/2024 9:34 AM CDT [facility] Final Diagnosis A) PERICARDIAL FLUID, CYTOLOGY WITH CELL BLOCK: 1. Negative for malignancy in this sample 2. Mild chronic inflammation 03/13/2024 9:34 AM T [facility] Clinical Information Heart failure 03/13/2024 9:34 AM T [facility] Gross Description A) SOURCE: Pericardial fluid The specimen consists of 80 cc of dark red opaque fluid from which the following is prepared: ? -1 DiffQuik stained slide ? -1 Papanicolaou stained ThinPrep slide ? -1 H&E stained cell block slide A2 Cell block material was placed in formalin at 1040 on 03/09/24 and fixed in formalin at least 6 hours and no more than 72 hours. 03/13/2024 9:34 AM T [facility] Microscopic Description All slides were reviewed microscopically. Specimen adequacy: Adequate for interpretation. The microscopic appearance substantiates the diagnosis. 03/13/2024 9:34 AM CDT [facility] Additional Information Cytology is screened at [facility] - [address] [address] and [facility] - [address] [place] [address] and [facility] - [address] [place] [address] Interpreted at [facility] - [address], [place] [address] 03/13/2024 9:34 AM T [facility] Other (Pericardial Effusion) 03/08/2024 6:33 PM CDT 03/08/2024 7:20 PM CDT Hebert Peña MD PATHOLOGY/CYTO LOGY [facility] [address] [place] [address], [place] * AFB Culture, Stain (03/08/2024 6:00 PM CDT) CULTURE No Mycobacterium isolated. 04/20/2024 2:12 PM CDT [facility] ACID FAST STAIN No acid fast bacilli seen 04/20/2024 2:12 PM CDT [facility] Other SPECIMEN FROM PERICARDIUM / Unknown Non-Blood / Unknown 03/08/2024 6:00 PM CDT 03/08/2024 7:20 PM CDT Hebert Peña MD MICROBIOLOGY [facility] [address], [place] [address], [place] * Body Fluid Culture, Stain (03/08/2024 6:00 PM CDT) CULTURE No Growth. 03/14/2024 7:49 AM CDT [facility] GRAM STAIN 3+ PMNs 03/14/2024 7:49 AM CDT [facility] GRAM STAIN No Epithelial cells 03/14/2024 7:49 AM CDT [facility] GRAM STAIN 2+ RBCs 03/14/2024 7:49 AM CDT [facility] GRAM STAIN No organisms seen 03/14/2024 7:49 AM CDT [facility] GRAM STAIN Gram stain performed by [place], [place] 03/14/2024 7:49 AM CDT [facility] Body Fluid SPECIMEN FROM PERICARDIUM / Unknown Non-Blood / Unknown 03/08/2024 6:00 PM CDT 03/08/2024 7:20 PM CDT Hebert Peña MD MICROBIOLOGY [facility] [address] [place] [address], [place] [facility] SENDOUT INTERNAL ZIP [phone] [place] [address] * Body Fluid Cell Count/Diff (03/08/2024 6:00 PM CDT) BODY FLUID SOURCE Pericardial 03/08/2024 11:41 PM CDT [facility] BODY FLUID COLOR Grossly Bloody 03/08/2024 11:41 PM CDT [facility] BODY FLUID CLARITY Turbid 03/08/2024 11:41 PM CDT [facility] TOTAL NUCLEATED CELLS, BF 2,556 /cu mm 03/08/2024 11:41 PM CDT [facility] RED BLOOD COUNT, BODY FLUID 752,000 /cu mm 03/08/2024 11:41 PM CDT [facility] % NEUTROPHILS, BODY FLUID 32 % 03/08/2024 11:41 PM CDT [facility] % LYMPHOCYTES, BODY FLUID 68 % 03/08/2024 11:41 PM CDT [facility] Body Fluid SPECIMEN FROM PERICARDIUM / Unknown Non-Blood / Unknown 03/08/2024 6:00 PM CDT 03/08/2024 7:20 PM CDT Hebert Peña MD BODY FLUID [facility] SENDOUT INTERNAL ZIP [phone] [place] [address] * Fungus Culture, Other Source (03/08/2024 6:00 PM CDT) CULTURE No Fungus isolated. 04/10/2024 7:44 AM CDT [facility] Other SPECIMEN FROM PERICARDIUM / Unknown Non-Blood / Unknown 03/08/2024 6:00 PM CDT 03/08/2024 7:20 PM CDT Hebert Peña MD MICROBIOLOGY [facility] [address] [place] [address], * Protein, Body Fluid (03/08/2024 6:00 PM CDT) SPECIMEN SOURCE pericardial 03/08/2024 8:49 PM CDT [facility] PROTEIN,BODY FLUID 4.6 g/dL 03/08/2024 8:49 PM CDT [facility] Comment:No Reference Range D efined. Body Fluid SPECIMEN FROM PERICARDIUM / Unknown Non-Blood / Unknown 03/08/2024 6:00 PM CDT 03/08/2024 7:20 PM CDT [facility] - 03/08/2024 8:49 PM CDT Pleural: Pleural fluid transudate total protein to serum total protein ratio typically </=0.5. Pleural fluid exudate total protein to serum total protein ratio typically >0.5. Peritoneal: Ascitic fluid total protein is a reflection of serum protein concentration. May be useful in differentiating secondary bacterial peritonitis from spontaneous bacterial peritonitis when at least two of the three criteria are met in ascetic fluid: Total Protein > 1.0 g/dL Glucose < 50 mg/dL LDH > Upper reference limit for serum Ascitic fluid total protein may be elevated > 2.5 g/dL in patients with high albumin gradient ascites caused by heart failure. Test developed & performance characteristics determined by [facility] [place], [place] consistent with CLIA requirements. Not cleared or approved by [place] FDA. Hebert Peña MD BODY FLUID [facility] SENDOUT INTERNAL ZIP [phone] [place] [address] * pH Body Fluid (03/08/2024 6:00 PM CDT) PH,BODY FLUID 7.42 03/08/2024 8:51 PM CDT [facility] Specimen Source Pericardial 03/08/2024 8:51 PM CDT [facility] Body Fluid SPECIMEN FROM PERICARDIUM / Unknown Non-Blood / Unknown 03/08/2024 6:00 PM CDT 03/08/2024 7:20 PM CDT Hebret Peña MD BODY FLUID [facility] SENDOUT INTERNAL ZIP [address] [address] [place] [address] * Glucose, Body Fluid (03/08/2024 6:00 PM CDT) SPECIMEN SOURCE pericardial 03/08/2024 8:49 PM CDT [facility] GLUCOSE,BODY FLUID 92 mg/dL 03/08/2024 8:49 PM CDT [facility] Comment:No Reference Range D efined. Body Fluid SPECIMEN FROM PERICARDIUM / Unknown Non-Blood / Unknown 03/08/2024 6:00 PM CDT 03/08/2024 7:20 PM CDT [facility] - 03/08/2024 8:49 PM CDT Pleural: Transudative pleural fluid glucose concentrations similar to serum glucose concentrations, while exudates have glucose concentrations less than serum glucose Glucose <60 mg/dL typically associated with low fluid pH Pericardial: Pericardial fluid glucose to serum glucose ratio <1.0 may be useful in differentiating exudate from transudate and infective from parainfective effusions Test developed & performance characteristics determined by [employer], [place], [place] consistent with CLIA requirements. Not cleared or approved by [place] FDA. Hebert Peña MD BODY FLUID [facility] SENDOUT INTERNAL ZIP [phone] [place] [address] * Amylase, Body Fluid (03/08/2024 6:00 PM CDT) SPECIMEN SOURCE pericardial 03/08/2024 8:49 PM CDT [facility] AMYLASE,BODY FLUID 7 IU/L 03/08/2024 8:49 PM CDT [facility] Comment:No Reference Range D efined. Body Fluid SPECIMEN FROM PERICARDIUM / Unknown Non-Blood / Unknown 03/08/2024 6:00 PM CDT 03/08/2024 7:20 PM CDT [facility] - 03/08/2024 8:49 PM CDT Peritoneal: Amylase activity in non-pancreatic peritoneal fluid is approximately equal to the serum amylase activity. Ascites associated with pancreatitis typically has amylase activity at least 5- fold greater than serum. Pleural: Amylase activity in pleural fluid is typically less than the upper limit of normal serumm amylase with fluid to serum amylase ratio <1.0 Test developed & performance characteristics determined by [employer], [place], [place] consistent with CLIA requirements. Not cleared or approved by [place] FDA. Hebert Peña MD BODY FLUID Performing Organization Address City/[facility]/ZIP Co de Phone Number [facility] SENDOUT INTERNAL ZIP [phone] [place] [address] * Anaerobic Culture (03/08/2024 6:00 PM CDT) CULTURE No anaerobes isolated 03/14/2024 2:06 PM CDT [facility] Other SPECIMEN FROM PERICARDIUM / Unknown Non-Blood / Unknown 03/08/2024 6:00 PM CDT 03/08/2024 7:20 PM CDT Hebert Peña MD MICROBIOLOGY Performing Organization Address [facility] Co de Phone Number [facility] [address] * Specific Rufus, Body [place] (03/08/2024 6:00 PM CDT) SOURCE Pericardial Fluid 03/08/2024 9:29 PM CDT [facility] SPECIFIC GRAVITY,BODY FL 1.028 03/08/2024 9:29 PM CDT [facility] Body Fluid SPECIMEN FROM PERICARDIUM / Unknown Non-Blood / Unknown 03/08/2024 6:00 PM CDT 03/08/2024 7:20 PM CDT Hebert Peña MD BODY FLUID Performing Organization Address City/[facility]/ZIP Co de Phone Number [facility] SENDOUT INTERNAL ZIP [phone] [place] [address] * CVL OTHER PROCEDURE (03/08/2024 5:22 PM CDT) Anatomical Region Laterality Modality Other 03/08/2024 5:22 PM CDT Narrative Transcriptions Hebert Peña MD - 03/08/2024 6:51 PM CDT [facility] [place] [facility] Cardiac Catheterization Report Name: MÓNICA LUNA Event Date: 03/08/2024 17:22 Excell[facility] ID #: [id number] [facility] #: [id number] Diagnostic Physician: HEBERT PEÑA [facility] Referring Physician: Date: 1950 Gender: Male Age: 73 Summary/Conclusions PRESENTATION / INDICATIONS * Large pericardial effusion * Nonischemic cardiomyopathy (EF 15 to 20%) 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 Pericardial access verified with bubble study on TTE.900 cc of bloody fluid removed. Minimal residual fluid noted onpostprocedure TTE. Pericardial drain sutured into place for gravitydrainage. No complications. RECOMMENDATIONS & PLAN * Successful pericardiocentesis as outlined above * Fluid sent to lab for further analysis * Limited echo in a.m. If no significant residual effusion nor drainage,okay to remove * Recommend temporary hold of anticoagulation and resumption of colchicine(septal bounce noted post drainage suggestive of some constrictivephysiology) * Results discussed with on-call cardiology Consent & [place] Protocol The risks, benefits, and alternatives of the procedure were discussed withthe patient and written informed consent was obtained. [place] protocol was followed. TIME OUT conducted just prior tostarting procedure confirmed patient identity, site/side, procedure,patient position, and availability of correct equipment and implants (ifapplicable). Staff Name Title Marlin De Leon RN Nurse Ynes Taylor CVT Scrub Norma Sorensen CVT Monitor Hebert Peña Diagnostic Element Setter Procedures ? Pericardiocentesis Hemodynamics State: Baseline Procedure Details Estimated Blood Loss: < 30 ml Specimen Collected: None Level of Sedation Achieved: Moderate Procedure Start: 17:22 Procedure End: 18:48 Procedure Time: 86 min Fluoroscopy Time: 0.6 min Cumulative Air Kerma: 10 mGy DAP: 1322 mGy/cm2 Complications ? No Complications Medications Ordered and Administered Start Time Stop Time Medication Dose Units Route Ordered By Given By 17:38 Fentanyl 25 mcg IV Marlin De Leon RN 17:39 Versed (midazolam) 1 mg IV Marlin De Leon RN 17:44 O2 2 l per min Nasal cannula Hebert Peña ChristineRN 18:01 Lidocaine 1% 10 ml Subcut Hebert Peña James T 18:41 Ketorolac Tromethamine 15 mg IV Hebert Peña Christine RN I personally monitored the patient?s conscious sedation during theprocedure. Conscious sedation starts with the first sedation medication dose ofFentanyl or Versed and ends when the procedure is completed, the patientis stable for recovery status, and the physician or other qualified healthcare professional providing the sedation ends personal [id number]-us-anja time with the patient. The medications listed above were verbally ordered by me and read back tome as documented above. Refer to the procedure log report for additional case details. electronically signed on 03/08/2024 6:51:08 PM with status of Final Hebert Peña MD [address], [place] [address] [place] [address] (p) [phone](f) Darlene Gandhi NP CV [facility] * SCAN-CARDIAC STRIP (03/08/2024 4:53 PM CDT) Scanner OTHER * SCAN-CARDIAC STRIP (03/08/2024 4:53 PM CDT) Scanner OTHER * (ABNORMAL) CBC WITH AUTO DIFFERENTIAL (03/08/2024 12:25 PM CDT) WHITE BLOOD COUNT 7.8 4.5 - 11.0 thou/cu mm 03/08/2024 12:36 PM CDT [facility] RED BLOOD COUNT 3.46(L) 4.30 - 5.90 mil/cu mm 03/08/2024 12:36 PM CDT [facility] HEMOGLOBIN 11.4(L) 13.5 - 17.5 g/dL 03/08/2024 12:36 PM CDT [facility] HEMATOCRIT 34.1(L) 37.0 - 53.0 % 03/08/2024 12:36 PM CDT [facility] MCV 99 80 - 100 fL 03/08/2024 12:36 PM CDT [facility] MCH 32.9 26.0 - 34.0 pg 03/08/2024 12:36 PM [facility] MCHC 33.4 32.0 - 36.0 g/dL 03/08/2024 12:36 PM [facility] RDW 13.8 11.5 - 15.5 % 03/08/2024 12:36 PM [facility] PLATELET COUNT 180 140 - 440 thou/cu mm 03/08/2024 12:36 PM T [facility] MPV 9.9 6.5 - 11.0 fL 03/08/2024 12:36 PM [facility] NRBC 0.0 % 03/08/2024 12:36 PM [facility] ABS NRBC 0.0 thou /cu mm 03/08/2024 12:36 PM [facility] % NEUT 72.8 % 03/08/2024 12:36 PM [facility] % LYMPH 14.2 % 03/08/2024 12:36 PM [facility] % MONO 10.7 % 03/08/2024 12:36 PM [facility] % EOS 1.5 % 03/08/2024 12:36 PM [facility] % BASO 0.5 % 03/08/2024 12:36 PM [facility] % IMMATURE GRAN (METAS,MYELOS,NC OS) 0.3 % 03/08/2024 12:36 PM [facility] ABSOLUTE NEUTROPHILS 5.7 1.7 - 7.0 thou/cu mm 03/08/2024 12:36 PM [facility] ABSOLUTE LYMPHOCYTES 1.1 0.9 - 2.9 thou/cu mm 03/08/2024 12:36 PM T [facility] ABSOLUTE MONOCYTES 0.8 <0.9 thou/cu mm 03/08/2024 12:36 PM T [facility] ABSOLUTE EOSINOPHILS 0.1 <0.5 thou/cu mm 03/08/2024 12:36 PM T [facility] ABSOLUTE BASOPHILS 0.0 <0.3 thou/cu mm 03/08/2024 12:36 PM [facility] ABSOLUTE IMMATURE GRANULOCYTES(MET ,MYELOS,PROS) 0.0 <0.3 thou/cu mm 03/08/2024 12:36 PM CDT [facility] Blood BLOOD SPECIMEN / Unknown Non-Lab Venipuncture / Unknown 03/08/2024 12:25 PM CDT 03/08/2024 12:33 PM CDT Nick Ugalde DO HEMATOLOGY [facility] SENDOUT [place]NAL ZIP [id number] [place] [address] * (ABNORMAL) PROTIME-INR (03/08/2024 12:25 PM CDT) INR 2.3(H) <1.3 03/08/2024 12:42 PM CDT [facility] PROTIME 25.6(H) 10.3 - 12.3 sec 03/08/2024 12:42 PM CDT [facility] Blood BLOOD SPECIMEN / Unknown Non-Lab Venipuncture / Unknown 03/08/2024 12:25 PM CDT 03/08/2024 12:33 PM CDT Narrative [facility] - 03/08/2024 12:42 PM CDT ?Therapeutic Range 2.0-3.0 for most anticoagulated patients 2.5-3.5 or 4.0 for high risk patients The INR is only used for patients on stable oral anticoagulant therapy. It makes no significant contribution to the diagnosis or treatment of patients whose Protime is prolonged for other reasons. INR results are increased when heparin levels exceed 1.0 U/mL, which corresponds to an aPTT >125 seconds if the patient is on UFH. Nick Ugalde DO HEMATOLOGY [facility] SENDOUT [place]NAL ZIP [id number] [place] [phone] * SCAN-CARDIAC STRIP (02/26/2024 8:07 AM CDT) Scanner OTHER * SCAN-CARDIAC STRIP (02/26/2024 1:04 AM CDT) Scanner OTHER * SCAN-CARDIAC STRIP (02/25/2024 7:35 PM CDT) Scanner OTHER * SCAN-CARDIAC STRIP (02/25/2024 10:38 AM CDT) Scanner OTHER * SCAN-CARDIAC STRIP (02/25/2024 12:05 AM CDT) Scanner OTHER * SCAN-CARDIAC STRIP (02/24/2024 3:35 PM CDT) Scanner OTHER * SCAN-CARDIAC STRIP (02/24/2024 1:09 PM CDT) Scanner OTHER * SCAN-CARDIAC STRIP (02/24/2024 8:00 AM CDT) Scanner OTHER * SCAN-CARDIAC STRIP (02/24/2024 12:05 AM CDT) Scanner OTHER * (ABNORMAL) URINALYSIS MICROSCOPIC (02/23/2024 1:25 PM CDT) RBC 51-100(A) 0-2, None Seen /HPF 02/23/2024 1:57 PM CDT [facility] WBC 3-5 0-2, 3-5, None Seen /HPF 02/23/2024 1:57 PM CDT [facility] BACTERIA None Seen None Seen, Rare, Few Bacteria/ HPF 02/23/2024 1:57 PM CDT [facility] EPITHELIAL CELLS None Seen None Seen, Few Epi/HPF 02/23/2024 1:57 PM CDT [facility] HYALINE CASTS 3-5 0-2, 3-5 /LPF 02/23/2024 1:57 PM CDT [facility] Urine URINE SPECIMEN / Unknown Non-Blood / Unknown 02/23/2024 1:25 PM CDT 02/23/2024 1:37 PM CDT Reina Sargent MD URINE [facility] SENDOUT [place]IP [address] [address] [place] [address] * URINE CULTURE (02/23/2024 1:25 PM CDT) CULTURE No growth (<1,000 CFU/mL) 02/24/2024 11:36 AM CDT [facility] Urine URINE SPECIMEN / Unknown Non-Blood / Unknown 02/23/2024 1:25 PM CDT 02/23/2024 1:37 PM CDT Reina Sargent MD MICROBIOLOGY [facility] [address] [place] [id number] * (ABNORMAL) UA W/ SEDIMENT EXAM REFLEXED PER CRITERIA (02/23/2024 1:25 PM CDT) COLOR Yellow Yellow Color 02/23/2024 1:45 PM CDT [facility] CLARITY Cloudy(A) Clear Clarity 02/23/2024 1:45 PM CDT [facility] SPECIFIC GRAVITY,URINE 1.025 1.010, 1.015, 1.020, 1.025 02/23/2024 1:45 PM CDT [facility] PH,URINE 5.5 6.0, 7.0, 8.0, 5.5, 6.5, 7.5, 8.5 02/23/2024 1:45 PM CDT [facility] UROBILINOGEN, QUALITATIVE Normal Normal EU/dl 02/23/2024 1:45 PM CDT [facility] PROTEIN, URINE Trace(A) Negative mg/dL 02/23/2024 1:45 PM CDT [facility] GLUCOSE, URINE Negative Negative mg/dL 02/23/2024 1:45 PM CDT [facility] KETONES,URINE Negative Negative mg/dL 02/23/2024 1:45 PM CDT [facility] BILIRUBIN,URI NE Negative Negative 02/23/2024 1:45 PM CDT [facility] OCCULT BLOOD,URINE Large(A) Negative 02/23/2024 1:45 PM CDT [facility] NITRITE Negative Negative 02/23/2024 1:45 PM CDT [facility] LEUKOCYTE ESTERASE Trace(A) Negative 02/23/2024 1:45 PM CDT [facility] Urine URINE SPECIMEN / Unknown Non-Blood / Unknown 02/23/2024 1:25 PM CDT 02/23/2024 1:37 PM CDT Reina Sargent MD URINE [facility] SENDOUT [place]IP [phone] [place] [address] * SCAN-CARDIAC STRIP (02/23/2024 10:37 AM CDT) Scanner OTHER * (ABNORMAL) ARTERIAL BLOOD GAS (02/23/2024 8:00 AM CDT) PH, ARTERIAL 7.41 7.35 - 7.45 02/23/2024 8:11 AM T [facility] PCO2, ARTERIAL 41 35 - 48 mmHg 02/23/20 24 8:11 AM T [facility] PO2, ARTERIAL 67(L) 83 - 108 mmHg 02/23/2024 8:11 AM T [facility] HCO3, ARTERIAL 26 21 - 28 mmol/L 02/23/2024 8:11 AM T [facility] BASE EXCESS, ARTERIAL 1.2 -2.0 - 3.0 02/23/2024 8:11 AM T [facility] O2 SATURATION, ARTERIAL 96 94 - 98 % 02/23/2024 8:11 AM T [facility] INSPIRED O2 02/23/2024 8:11 AM T [facility] Comment:Unit of Measure: Lit ers (L) if <=20; Percent (%) if >20 PATIENT TEMPERATURE 37.0 Degrees C 02/23/2024 8:11 AM T [facility] Blood ARTERIAL BLOOD SPECIMEN / Unknown Arterial / Unknown 02/23/2024 8:00 AM CDT 02/23/2024 8:07 AM CDT Jessika Vázquez NP CHEMISTRY [facility] SENDOUT [place] ZIP [phone] [place] [address] * SCAN-CARDIAC STRIP (02/23/2024 12:46 AM CDT) Scanner OTHER * SCAN-PACER (02/23/2024 12:00 AM CDT) Narrative 02/23/2024 12:00 AM CDT Ordered by an unspecified provider. Other Clinical Staff OTHER * SCAN-PACER (02/23/2024 12:00 AM CDT) Narrative 02/23/2024 12:00 AM CDT Ordered by an unspecified provider. Other Clinical Staff OTHER * (ABNORMAL) ACTIVATED CLOTTING TIME [id number] ACT (02/22/2024 5:34 PM CDT) Only the most recent of13 resultswithin the time period is included. ACTIVATED CLOTTING TIME, POCT 352(H) 74 - 125 sec 03/01/2024 7:22 AM CDT [facility] Blood BLOOD SPECIMEN / Unknown 02/22/2024 5:34 PM CDT 03/01/2024 7:22 AM CDT Boyd Edwards MD HEMATOLOGY [facility] SENDOUT [place]IP [address] [address] [place] [address] * HCHG TUBING PR1, HCHG TUBING PR20, HCHG DRSG PR1, HCHG DRSG PR5, HCHG STATLOCK PR1, HCHG KIT PR5 (02/22/2024 4:03 PM CDT) Narrative Marcie Garduno MD - 02/22/2024 4:03 PM CDT Marcie Garduno MD ? 02/22/2024 ??4:03 PM Arterial Line Patient location during procedure: OR Start time: 02/22/2024 11:00 AM End time: 02/22/2024 11:05 AM Indications: lab sampling and monitoring Staffing Preanesthetic Checklist Completed: patient identified, risks and benefits discussed, consent obtained and timeout performed Arterial Line Patient position: supine. ??Comment:. Laterality: right Site: radial Local Anesthetic: lidocaine 1%. Securement/dressing: Biopatch applied, dressing applied, STATLOCK stabilization placed. ??Comment: Supplemental O2: supplemental oxygen. ??Comment:. Vessel Sales Promotion Representative Additional supplies used to locate vessel: no Needle Catheter size: 20 G. ??Comment:. Catheter length: other. ??Comment: Events: no complications. Marcie Garduno MD ANESTHESIA PX NOTE ORDERABLES * EP STUDY /ABLATION (02/22/2024 11:43 AM CDT) Anatomical Region Laterality Modality X-Ray Angiograph y 02/22/2024 11:4 3 AM CDT Boyd Edwards MD CV IMAGING * HCHG TUBE PR1, HCHG STYLET PR1, HCHG MOUTHPIECE PR1 (02/22/2024 11:23 AM CDT) Narrative Rhina Harris CRNA - 02/22/2024 11:23 AM CDT Rhina Harris CRNA ? 02/22/2024 ??1:40 PM Procedure: ETT Patient location during procedure: OR ETT Properties Mask Ventilation: easy Final Technique: direct laryngoscopy Type: straight Location: oral Cuffed: yes Tube Size: 8.0 mm Stylet: yes Laryngoscope Blade: Lloyd Blade Size: 2 Cormack-Lehane Grade View: 1 Insertion Attempts: 1 Placement Verification: auscultation, end tidal CO2 and symmetrical chest wall movement Assessment: pharynx clear, atraumatic and dentition unchanged Secured at: 23 Measured From: teeth Tooth guard used and removed: yes Difficulty: 0 (not difficult) Notes: Pt right front incisor chipped prior to surgery Marcie Garduno MD ANESTHESIA PX NOTE ORDERABLES * DONOR ANTIGEN (02/22/2024 10:13 AM CDT) QUANTITY 1 [facility] BLOOD BANK DONOR ANTIGEN TYPE Donor Antigen Type [facility] [employer] BLOOD BANK Boyd Edwards MD BLOOD BANK [facility] BLOOD BANK [address] [place] [phone] * (ABNORMAL) TYPE & SCREEN (02/22/2024 10:13 AM CDT) Pathologist [facility] ABORH A Rh Negative 02/22/2024 11:26 AM CDT [facility] BLOOD BANK ANTIBODY SCREEN Positive(A) Negative 02/22/2024 11:26 AM CDT [facility] BLOOD BANK SPECIMEN EXPIRATION DATE/TIME 02/25/24 23:59 02/22/2024 11:26 AM CDT [facility] BLOOD BANK Blood BLOOD SPECIMEN / Unknown Venipuncture / Unknown 02/22/2024 10:13 AM CDT 02/22/2024 10:20 AM CDT Boyd Edwards MD BLOOD BANK Performing Organization Address City/[facility]/ZIP Co de Phone Number [facility] BLOOD BANK [address] [place] [phone] * ARC STAT CHARGE (02/22/2024 10:13 AM CDT) Pathologist [facility] QUANTITY 1 [facility] BLOOD BANK ARC STAT CHARGE ARC Stat Charge [facility] BLOOD BANK Boyd Edwards MD BLOOD BANK Performing Organization Address City/[facility]/ZIP Co de Phone Number [facility] BLOOD BANK [address] [place] [phone] * ARC ANTIGEN TYPE (02/22/2024 10:13 AM CDT) Pathologist [facility] QUANTITY 1 [facility] BLOOD BANK ARC ANTIGEN TYPE ARC Antigen Type [facility] BLOOD BANK Body Edwards MD BLOOD BANK Performing Organization Address City/[facility]/ZIP Co de Phone Number [facility] BLOOD BANK [address] [place] [phone] * M ANTIGEN TYPE LAB USE ONLY (02/22/2024 10:13 AM CDT) [facility] M ANTIGEN TYPE Testing Complete 02/22/2024 5:46 PM CDT [facility] BLOOD BANK Blood BLOOD SPECIMEN / Unknown Venipuncture / Unknown 02/22/2024 10:13 AM CDT 02/22/2024 10:20 AM CDT Boyd Edwards MD BLOOD BANK Performing Organization Address City/[facility] Co de Phone Number [facility] BLOOD BANK [address] [place] [phone] * (ABNORMAL) ANTIBODY IDENTIFICATION LAB USE ONLY (02/22/2024 10:13 AM CDT) [facility] ANTIBODY IDENTIFICATION Anti-M(A) 02/22/2024 3:18 PM CDT [facility] Blood BLOOD SPECIMEN / Unknown Venipuncture / Unknown 02/22/2024 10:13 AM CDT 02/22/2024 10:20 AM CDT Narrative [facility] B[facility] - 02/22/2024 3:18 PM CDT Blood products may be delayed. Draw patient 24 hours prior to transfusion. Draw one red top and two purple top tubes for all Type and Screen orders. This patient's serological work-up may have included protocols and/or reagents that have not been cleared or approved by the U.S. Food and Drug Administration. If specific information is required, please contact the performing laboratory Boyd Edwards MD BLOOD BANK Performing Organization Address [facility] Co de Phone Number [facility] BLOOD BANK [address] [place] [phone] * ANTIBODY IDENTIFICATION EACH PANEL (02/22/2024 10:13 AM CDT) [facility] BLOOD BANK PANEL JUAN ANTONIO ID Panel Antibody ID [facility] BLOOD BANK Boyd Edwards MD BLOOD BANK Performing Organization Address City/[facility]/ZIP Co de Phone Number [facility] BLOOD BANK [address] [place] [phone] * PANEL-ABBREVIATED (02/22/2024 10:13 AM CDT) [facility] QUANTITY 1 [facility] BLOOD BANK PANEL ABBREVIATED Panel Abbreviated [facility] BLOOD BANK Boyd Edwards MD BLOOD BANK Performing Organization Address [facility] Co de Phone Number [facility] BLOOD BANK [address] [place] [phone] * PREWARM TECHNIQUE (02/22/2024 10:13 AM CDT) QUANTITY 1 [facility] BLOOD BANK PREWARM TECH Prewarm Technique [facility] BLOOD BANK Boyd Edwards MD BLOOD BANK Performing Organization Address [facility] Co de Phone Number [facility] BLOOD BANK [address] [place] [phone] * RED BLOOD CELLS EA UNIT (02/22/2024 10:13 AM CDT) Only the most recent of2 resultswithin the time period is included. CROSSMATCH Compatible Compatible [facility] BLOOD BANK PRODUCT BLOOD TYPE A Rh Negative [facility] PRODUCT ID NUMBER [id number] [facility] B[facility] PRODUCT STATUS /Relea sed [facility] BLOOD BANK PRODUCT DESCRIPTION RBC -1 LR [facility] B[facility]OD [facility] PRODUCT CODE [id number] [facility] BLOOD BANK Boyd Edwards MD BLOOD BANK Performing Organization Address [facility] Co de Phone Number [facility] BLOOD BANK [address] [place] [phone] * SCAN-CARDIAC STRIP (02/22/2024 12:00 AM CDT) Narrative 02/22/2024 12:00 AM CDT Ordered by an unspecified provider. Other Clinical Staff OTHER * SCAN-CARDIAC STRIP (02/22/2024 12:00 AM CDT) Narrative 02/22/2024 12:00 AM CDT Ordered by an unspecified provider. Other Clinical Staff OTHER * SCAN-CARDIAC STRIP (02/22/2024 12:00 AM CDT) Narrative 02/22/2024 12:00 AM CDT Ordered by an unspecified provider. Other Clinical Staff OTHER * CT CARDIAC MORPHOLOGY W DUAL READ (02/21/2024 10:55 AM CDT) Anatomical Region Laterality Modality HEART Computed Tomogra phy, Other Impressions 02/22/2024 12:26 PM CDT 1. ?No significant incidental extracardiac findings. 2. ?Please refer to continuous dryout operator helper's dictation for the cardiac CT report. Narrative 02/22/2024 12:26 PM CDT Results are automatically released to your [employer] account once available, in compliance with federal regulations. ??This means that you may see your results before your provider has had a chance to review them. ??Please allow 2-3 business days for your provider to comment on the results. CT CARDIAC MORPHOLOGY STUDY, 02/21/2024 INDICATION: Frequent PVCs, nonsustained ventricular tachycardia, ventricular tachycardia, abnormal result of other cardiovascular function study. CONCLUSIONS: This is a dual read study - please review [facility] over-read below for incidental non cardiac findings. No evidence of intracardiac thrombus. Severe left ventricular chamber dilation. Three intracardiac device leads are present, including a right atrial lead, right ventricular lead, and left ventricular lead in their expected locations as described below. Mild coronary artery calcifications are present. Mild dilation of the ascending thoracic aorta, measuring 43 x 42 mm in diameter with ascending aorta giss-fn-lrfbuo index of 7.8 cm2/m. TECHNIQUE: ECG-gated CT angiogram of the heart with intravenous contrast Omnipaque 350, 100 mL, was performed on a Siemens SOMATOM Force CT scanner. The imaging protocol was individualized to minimize radiation exposure. The following ECG-gated acquisition protocol was used: Watchman protocol with 45 and 90-second delayed imaging. Pulse range 300-400 msec. Delayed imaging was performed for assessment of the left atrial appendage. Tube potential: 90 kV. Tube current: 4979 mAs. Total DLP: 410 mGy*cm; mSv: 6; CTDI: 22. Image post processing was performed on a [employer] Workstation. Images were reconstructed at a slice thickness of 1 mm with 1 mm overlap. The patient received the following medications: None. Average heart rate during the study was 70 BPM, ranging 56-103 BPM in the setting of frequent premature beats. There were no immediate complications. TECHNICAL QUALITY: Good. ?? FINDINGS CARDIAC: Severe left ventricular chamber dilation. No evidence of left ventricular thrombus. No evidence of thrombus in the atrium or left atrial appendage. Grossly normal mitral and aortic valve appearance. Biatrial enlargement. Grossly intact interatrial septum. No pericardial effusion. Three intracardiac device leads are present, including a right atrial lead, right ventricular lead, and left ventricular lead in their expected locations. ??The right atrium lead extends to the anterior aspect of the right atrial appendage. The right ventricle lead extends to the apical right ventricle. The left ventricle lead extends via the coronary sinus to the lateral left ventricle. CORONARY ARTERIES: Right dominant coronary artery system. Normal coronary artery origins. Mild coronary artery calcifications are present. VESSELS: Mild dilation of the ascending thoracic aorta, measuring 42 x 43 mm in diameter. The ascending aorta qiyi-bg-gykkqx index is 7.8 cm2/m. Mild calcific atherosclerosis is present in the aortic root. Mild calcific atherosclerosis is present in the aortic arch. Trivial calcific atherosclerosis is present in the descending thoracic aorta. Grossly normal diameter of the pulmonary artery. Normally connected pulmonary veins. NON-CARDIAC: Please review radiology report below for incidental non-cardiovascular findings. Carri Arias MD [facility] EJT/car For Patients: As a result of the Century Cures Act, medical imaging exams and procedure reports are released immediately into your electronic medical record. You may view this report before your referring provider. If you have questions, please contact your health care provider. EXAM: OVERREAD: DETAILED [facility] RADIOLOGY EXTRACARDIAC OVERREAD OF CARDIAC CT LOCATION: [facility] DATE: 02/21/2024 INDICATION: Cardiac - Other. Ventricular tachycardia (VT), nonsustained. Cardiac thrombus or embolic source suspected. Heart failure, systolic, determine etiology. Pre-VT ablation on 02/22/2024 TECHNIQUE: Dose reduction techniques were used. COMPARISON: CT chest 08/06/2016. FINDINGS: LIMITED CHEST: Focal opacity in the medial left lower lobe along the diaphragm suspicious for atelectasis. No acute airspace disease. LIMITED MEDIASTINUM: Negative. LIMITED UPPER ABDOMEN: Negative. Boyd Edwards MD CT * (ABNORMAL) CREATININE,ISTAT (02/21/2024 10:18 AM CDT) CREATININE, POCT 1.20(H) 0.57 - 1.11 mg/dL 02/21/2024 10:56 AM CDT [facility] Comment:Caution: Patients ta susan Hydroxyurea have falsely increased iStat Creatinine results. Verify creatinine results ordering a Creatinine (50770.2) eGFR 63(L) >90 mL/min/1.7 3m2 02/21/2024 10:56 AM CDT [facility] Comment:As of 2021, eG FR is calculated by the CKD-EPI creatinine equation without race adjustment. eGFR can be influenced by muscle mass, exercise, and diet. The reported eGFR is an estimation only and is only applicable if the renal function is stable. Blood BLOOD SPECIMEN / Unknown 02/21/2024 10:18 AM CDT 02/21/2024 10:56 AM CDT Boyd Edwards MD CHEMISTRY [facility] [address] [place] [id number] [address] [place] [address] * ECHO TECHNICAL REPEAT (02/17/2024 2:59 PM CDT) Pathologist [facility] EJECTION FRACTION 15-20% PROSOLV Anatomical Region Laterality Modality Ultrasound 02/17/2024 2:27 PM CDT Narrative 02/17/2024 4:00 PM CDT [address], [place] [address] Main: ? 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 BP: 106 / 64 Weight: 255 lbs BMI: 36.6 kg/m?? HR: 76 Location: [facility] Rhythm: Irregular Procedure Components: Limited 2D imaging with contrast Indications: Frequent PVCs Technical Quality: Fair Contrast: Definity Constrast Dose (ml): 0.45 [facility]#: [id number] Final Conclusion Previous Study: 02/13/2024 Limited study ordered as repeat for contrast images Left ventricular chamber enlargement. Calculated left ventricular ejection fraction (modified Stone technique) is 19 %. Severely decreased left ventricular systolic function. Generalized left ventricular hypokinesis. Abnormal ventricular septal motion. ??In some views, echodensity in the apex noted to suggest?prominent trabeculation in the apex. No definite left ventricular thrombus. Consider cardiac MRI for further assessment if clinically indicated. Estimated EF: 15-20% FINDINGS Left Ventricle Left ventricular chamber enlargement. Calculated left ventricular ejection fraction (modified Stone technique) is 19 %. Severely decreased left ventricular systolic function. Generalized left ventricular hypokinesis. Abnormal ventricular septal motion. ??In some views, echodensity in the apex noted to suggest?prominent trabeculation suggested in the apex. No definite left ventricular thrombus. Consider cardiac MRI for further assessment if clinically indicated MEASUREMENTS ??(Male / Female) Normal Values 2D MEASUREMENTS AND LV FUNCTION LV Ejection Fraction MOD BP ? 19 % ?>= 55 ??% Bianca Vizcaino MD (Electronically Signed) [facility] Accredited Site Final Date: 17 Feb 2024 16:00 ICD-10 Codes: I49.3 Procedure Note Bianca Vizcaino MBBS - 02/17/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 BP: 106 / 64 Weight: 255 lbs BMI: 36.6 kg/m?? HR: 76 Location: [facility] Rhythm: Irregular Procedure Components: Limited 2D imaging with contrast Indications: Frequent PVCs Technical Quality: Fair Contrast: Definity Constrast Dose (ml): 0.45 [facility]#: [id number] Final Conclusion Previous Study: 02/13/2024 Limited study ordered as repeat for contrast images Left ventricular chamber enlargement. Calculated left ventricularejection fraction (modified Stone technique) is 19 %. Severely decreased left ventricular systolic function. Generalized leftventricular hypokinesis. Abnormal ventricular septal motion. In some views, echodensity in the apex noted to suggest?prominenttrabeculation in the apex. No definite left ventricular thrombus. Consider cardiac MRI for further assessment if clinically indicated. Estimated EF: 15-20% FINDINGS Left Ventricle Left ventricular chamber enlargement. Calculated leftventricular ejection fraction (modified Stone technique) is 19 %. Severely decreased left ventricular systolic function.Generalized left ventricular hypokinesis. Abnormal ventricular septal motion. In some views, echodensity in the apex notedto suggest?prominent trabeculation suggested in the apex. No definite left ventricular thrombus. Consider cardiac MRI for further assessment if clinically indicated MEASUREMENTS (Male / Female) Normal Values 2D MEASUREMENTS AND LV FUNCTION LV Ejection Fraction MOD BP 19 % >= 55 % Bianca Vizcaino MD (Electronically Signed) [facility] Accredited Site Final Date: 17 Feb 2024 16:00 ICD-10 Codes: I49.3 Boyd Edwards MD ECHO ORD * ECHO TTE COMPLETE WO CONTRAST (02/13/2024 10:55 AM CDT) EJECTION FRACTION 30% PROSOLV Anatomical Region Laterality Modality Ultrasound 02/13/2024 10:2 0 AM CDT Narrative 02/13/2024 1:09 PM CDT [address], [place] [address] Main: ? 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 Height: 70 in BSA: 2.31 m?? BP: 132 / 84 Weight: 255 lbs BMI: 36.6 kg/m?? HR: 70 Location: [facility] Rhythm: Irregular Procedure Components: 2D imaging, Color Doppler, Spectral Doppler Indications: Frequent PVCs; On amiodarone therapy Technical Quality: Fair Contrast: None Final Conclusion Previous Study: 03/16/23 1. Severe left ventricular chamber enlargement. Normal left ventricular wall thickness. Moderate-severely decreased left ventricular systolic function. Estimated left ventricular ejection fraction is 30%. 2. Normal right ventricular chamber size. Normal right ventricular systolic function. 3. No significant valvular heart disease. 4. Mildly increased ascending aorta dimension (4.7 cm, 2 cm/m??). 5. Normal inferior vena cava with normal inspiratory collapse consistent with normal right atrial pressure. 6. When compared to the previous echocardiographic images of 03/16/23, the left ventricular dimensions have increased and left ventricular systolic function has decreased. Estimated EF: 30% FINDINGS Left Ventricle Severe left ventricular chamber enlargement. Normal left ventricular wall thickness. Moderate-severely decreased left ventricular systolic function. Estimated left ventricular ejection fraction is 30%. Moderate-severe generalized left ventricular hypokinesis. Diastolic Function Grade 1 left ventricular diastolic dysfunction consistent with abnormal myocardial relaxation and normal left ventricular filling pressure. Right Ventricle Normal right ventricular chamber size. Normal right ventricular systolic function. Right ventricular systolic pressure cannot be estimated due to inability to detect peak tricuspid regurgitation Doppler velocity. Left Atrium Mild-moderate left atrial enlargement. Left atrial volume index is 42.6 ml/m??. Right Atrium Normal right atrial size. Atrial Septum Atrial septum was not well visualized. Aortic Valve Trileaflet aortic valve. Aortic valve sclerosis. No aortic valve stenosis. No aortic valve regurgitation. Mitral Valve Mildly calcified mitral annulus. Mildly thickened mitral valve. No mitral valve stenosis. Trivial mitral valve regurgitation. Tricuspid Valve Normal tricuspid valve. Trivial tricuspid valve regurgitation. Pulmonic Valve Pulmonary valve was not well visualized. No pulmonary valve stenosis. Trivial pulmonary valve regurgitation. Pericardium No pericardial effusion. Aorta Aortic sinus of Valsalva is normal in size (3.9 cm, ZScore = 0.02). Mildly increased ascending aorta dimension (4.7 cm, 2 cm/m??). Inferior Vena Cava Normal inferior vena cava with normal inspiratory collapse consistent with normal right atrial pressure. Other Device lead(s) identified in the right atrium and right ventricle. MEASUREMENTS ??(Male / Female) Normal Values 2D MEASUREMENTS AND LV FUNCTION IVS Diastolic Thickness ? 1.03 cm ? < 1.1 cm / < 1.0 cm LV Diastolic Diameter PLAX ?6.89 cm ? 4.2 - 5.9 / 3.9 - 5.3 cm LV Diastolic Diameter Index ? 2.98 cm/m?? LVPW Diastolic Thickness ?0.912 cm ?< 1.1 cm / < 1.0 cm LV Systolic Diameter PLAX ? 6.36 cm LV Systolic Diameter Index ?2.75 cm/m?? LVOT Diameter ? 2.5 cm LVOT Cardiac Output ? 6.73 l/min LVOT Cardiac Index ?2.77 l/min??m?? LVOT Stroke Volume ?96.2 ml Stroke Volume Index ? 39.5 ml/m?? LV Ejection Fraction MOD BP ? 27.5 % ?>= 55 ??% LA Area 4C View ? 28.5 cm?? LA Length 4C ?7.11 cm LA Area 2C View ? 30.4 cm?? LA Length 2C ?7.05 cm LA Volume ? 103 ml LA Volume MOD BP ?98.6 ml LA Volume Index MOD BP ?42.6 ml/m?16 - 34 ml/m?? LV Mass ? 302 g LV Mass Index ? 126 g/m?? Sinuses of Valsalva Diameter(d) ?? 3.9 cm Ascending Aorta Diameter(s) ? 4.7 cm IVC Diameter Expiration ? 1.19 cm Ascending Aorta Index ? 2.03 cm/m?? M MODE TAPSE MM ?2.42 cm DIASTOLOGY Mitral E Point Velocity ? 0.829 m/sec ? 0.70 - 1.02 m/sec Mitral A Point Velocity ? 1.04 m/sec ?0.06 - 1.06 m/sec Mitral E to A Ratio ? 0.797 ? 1.1 - 2.1 MV Deceleration Time ?248 msec ?167 - 231 msec LV E' Lateral Velocity ?0.0468 m/sec Mitral E to LV E' Lateral Ratio ?? 17.7 LV E' Septal Velocity ? 0.0424 m/sec Mitral E to LV E' Septal Ratio ?19.6 AORTIC VALVE AV Peak Velocity ?1.54 m/sec ?< 2.0 m/sec AV Peak Gradient ?9.49 mmHg AV Mean Gradient ?5 mmHg AV Velocity Time Integral ? 28.1 cm LVOT Peak Velocity ?1.1 m/sec LVOT Velocity Time Integral ? 19.6 cm AV Area Cont Eq vti ? 3.42 cm?? AV Area Cont Eq pk ?3.5 cm?? AV Dimensionless Index ?0.698 TRICUSPID VALVE AND ESTIMATED PRESSURES Right Atrial Pressure ? 3 mmHg HCM DATA LVOT ZURI (r) ?4.81 mmHg Aortic Root ZScore: 0.02 Dex Germain MD (Electronically Signed) [facility] Site Final Date: 13 February 2024 13:08 ICD-10 Codes: I49.3; Z79.899 Procedure Note Dex Germain MD - 02/13/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 BP: 132 / 84 Weight: 255 lbs BMI: 36.6 kg/m?? HR: 70 Location: [facility] Rhythm: Irregular Procedure Components: 2D imaging, Color Doppler, Spectral Doppler Indications: Frequent PVCs; On amiodarone therapy Technical Quality: Fair Contrast: None Final Conclusion Previous Study: 03/16/23 1. Severe left ventricular chamber enlargement. Normal left ventricularwall thickness. Moderate-severely decreased left ventricular systolic function. Estimated left ventricular ejection fraction is 30%. 2. Normal right ventricular chamber size. Normal right ventricularsystolic function. 3. No significant valvular heart disease. 4. Mildly increased ascending aorta dimension (4.7 cm, 2 cm/m??). 5. Normal inferior vena cava with normal inspiratory collapse consistentwith normal right atrial pressure. 6. When compared to the previous echocardiographic images of 03/16/23, theleft ventricular dimensions have increased and left ventricular systolic function has decreased. Estimated EF: 30% FINDINGS Left Ventricle Severe left ventricular chamber enlargement. Normal leftventricular wall thickness. Moderate-severely decreased left ventricular systolic function. Estimated left ventricular ejectionfraction is 30%. Moderate-severe generalized left ventricular hypokinesis. Diastolic Function Grade 1 left ventricular diastolic dysfunctionconsistent with abnormal myocardial relaxation and normal left ventricular filling pressure. Right Ventricle Normal right ventricular chamber size. Normal rightventricular systolic function. Right ventricular systolic pressure cannot be estimated due to inability to detect peak tricuspidregurgitation Doppler velocity. Left Atrium Mild-moderate left atrial enlargement. Left atrial volumeindex is 42.6 ml/m??. Right Atrium Normal right atrial size. Atrial Septum Atrial septum was not well visualized. Aortic Valve Trileaflet aortic valve. Aortic valve sclerosis. No aorticvalve stenosis. No aortic valve regurgitation. Mitral Valve Mildly calcified mitral annulus. Mildly thickened mitralvalve. No mitral valve stenosis. Trivial mitral valve regurgitation. Tricuspid Valve Normal tricuspid valve. Trivial tricuspid valveregurgitation. Pulmonic Valve Pulmonary valve was not well visualized. No pulmonaryvalve stenosis. Trivial pulmonary valve regurgitation. Pericardium No pericardial effusion. Aorta Aortic sinus of Valsalva is normal in size (3.9 cm, ZScore = 0.02).Mildly increased ascending aorta dimension (4.7 cm, 2 cm/m??). Inferior Vena Cava Normal inferior vena cava with normal inspiratorycollapse consistent with normal right atrial pressure. Other Device lead(s) identified in the right atrium and rightventricle. MEASUREMENTS (Male / Female) Normal Values 2D MEASUREMENTS AND LV FUNCTION IVS Diastolic Thickness 1.03 cm < 1.1 cm / < 1.0cm LV Diastolic Diameter PLAX 6.89 cm 4.2 - 5.9 / 3.9 -5.3 cm LV Diastolic Diameter Index 2.98 cm/m?? LVPW Diastolic Thickness 0.912 cm < 1.1 cm / < 1.0cm LV Systolic Diameter PLAX 6.36 cm LV Systolic Diameter Index 2.75 cm/m?? LVOT Diameter 2.5 cm LVOT Cardiac Output 6.73 l/min LVOT Cardiac Index 2.77 l/min??m?? LVOT Stroke Volume 96.2 ml Stroke Volume Index 39.5 ml/m?? LV Ejection Fraction MOD BP 27.5 % >= 55 % LA Area 4C View 28.5 cm?? LA Length 4C 7.11 cm LA Area 2C View 30.4 cm?? LA Length 2C 7.05 cm LA Volume 103 ml LA Volume MOD BP 98.6 ml LA Volume Index MOD BP 42.6 ml/m?? 16 - 34 ml/m?? LV Mass 302 g LV Mass Index 126 g/m?? Sinuses of Valsalva Diameter(d) 3.9 cm Ascending Aorta Diameter(s) 4.7 cm IVC Diameter Expiration 1.19 cm Ascending Aorta Index 2.03 cm/m?? M MODE TAPSE MM 2.42 cm DIASTOLOGY Mitral E Point Velocity 0.829 m/sec 0.70 - 1.02m/sec Mitral A Point Velocity 1.04 m/sec 0.06 - 1.06m/sec Mitral E to A Ratio 0.797 1.1 - 2.1 MV Deceleration Time 248 msec 167 - 231 msec LV E' Lateral Velocity 0.0468 m/sec Mitral E to LV E' Lateral Ratio 17.7 LV E' Septal Velocity 0.0424 m/sec Mitral E to LV E' Septal Ratio 19.6 AORTIC VALVE AV Peak Velocity 1.54 m/sec < 2.0 m/sec AV Peak Gradient 9.49 mmHg AV Mean Gradient 5 mmHg AV Velocity Time Integral 28.1 cm LVOT Peak Velocity 1.1 m/sec LVOT Velocity Time Integral 19.6 cm AV Area Cont Eq vti 3.42 cm?? AV Area Cont Eq pk 3.5 cm?? AV Dimensionless Index 0.698 TRICUSPID VALVE AND ESTIMATED PRESSURES Right Atrial Pressure 3 mmHg HCM DATA LVOT ZURI (r) 4.81 mmHg Aortic Root ZScore: 0.02 Dex Germain MD (Electronically Signed) [facility] Accredited Site Final Date: 13 February 2024 13:08 ICD-10 Codes: I49.3; Z79.899 Boyd Edwards MD ECHO ORD * LIPID PANEL (03/01/2022 3:23 PM CDT) CHOLESTEROL,TOTAL 180 100 - 199 mg/dL 03/02/2022 12:58 AM T [facility] LAB[facility]ATORY TRIGLYCERIDES 122 <150 mg/dL 03/02/2022 12:58 AM T [facility] HDL CHOLESTEROL 50 >40 mg/dL 12:58 AM T [facility] NON-HDL CHOLESTEROL 130 <145 mg/dl 03/02/2022 12:58 AM T [facility] CHOL/HDL RATIO 3.60 <4.50 03/02/2022 12:58 AM T [facility] LDL CHOLESTEROL 106 <=130 mg/dL 03/02/2022 12:58 AM T [facility] VLDL CHOLESTEROL 24 <=30 mg/dL 03/02/2022 12:58 AM T [facility] TR[facility] PROVIDER ORDERED STATUS RANDOM 03/02/2022 12:58 AM T [facility] TR[facility] Blood BLOOD SPECIMEN / Unknown Venipuncture / Unknown 03/01/2022 3:23 PM CDT 03/01/2022 3:23 PM CDT Adria Alberts DO CHEMISTRY [facility] [address] [place] [address], from Last 3 Months or Most Recently Relevant to Health Maintenance Advance Directives * Full Code (Latest Code Status on File) Date Activated Date Inactivated Comments 04/16/2024 8:38 AM 04/16/2024 1:20 PM Question Answer Comments Code Status Discussion: Unable to Assess Preferences, Provider to review later * Full Code Date Activated Date Inactivated Comments 03/13/2024 9:15 PM 03/16/2024 5:05 PM Question Answer Comments Code Status Discussion: Reviewed Preferences * Full Code Date Activated Date Inactivated Comments 03/13/2024 7:31 PM 03/13/2024 9:15 PM Question Answer Comments Code Status Discussion: Reviewed Preferences * Full Code Date Activated Date Inactivated Comments 03/08/2024 1:25 PM 03/10/2024 9:53 PM Question Answer Comments Code Status Discussion: Reviewed Preferences * Full Code Date Activated Date Inactivated Comments 02/22/2024 6:23 PM 02/26/2024 2:42 PM Question Answer Comments Code Status Discussion: Reviewed Preferences Care Teams Packing House Supervisor Relationship Specialty Start Date End Date Pcp, No . PCP - General 05/02/24 Jaya Coughlin MD [address] [place] [address] Consulting Physician Cardiovascular Disease 09/02/15 Abby Thomas, SANDRA [address] [place] [address] Cardiology - CHF Cardiovascular Disease 01/02/18 Marycarmen Pimentel, SANDRA [address] [place] [address] Cardiology - EP Cardiovascular Disease 01/02/18 Aristides Ventura MBBS [address] [place], [place] [id number] Cardiology - EP Cardiovascular Disease 01/02/18 Natalie Artis [address] [place], [place] [id number] 05/16/18 Maria Jin [address] [place], [place] [phone] 02/14/19 Boyd Edwards MD [address] [place] [address] Consulting Physician Cardiology - Electrophysiology 02/07/24
--- OUTSIDE RECORDS SUMMARY | 2024-05-07 20:13 | XMS_ITS | Referral Summary ---
Author Organization [facility] Address [address] [place] [address] Care Team Providers Care Dental Sales Representative Name Role Phone No Ref-Primary, Physician Primary Care Provider Allergies No known active allergies Medications Medication Sig Dispensed Refills Start Date End Date Status dofetilide (TIKOSYN) 125 MCG capsule Take 125 mcg by mouth 2 times daily Active ELIQUIS ANTICOAGULANT 5 MG tablet Take 5 mg by mouth 2 times daily 06/13/2023 Active atorvastatin (LIPITOR) 40 MG tablet Take 40 mg by mouth at bedtime 06/13/2023 Active furosemide (LASIX) 40 MG tablet Take 60 mg by mouth daily 01/12/2024 Active lisinopril (ZESTRIL) 10 MG tablet Take 10 mg by mouth at bedtime 09/15/2023 Active MAGNESIUM-OXIDE 400 (240 Mg) MG tablet Take 400 mg by mouth daily 06/13/2023 Active potassium chloride espinoza ER (KLOR-CON M20) 20 MEQ CR tablet Take 20 mEq by mouth daily 01/12/2024 Active spironolactone (ALDACTONE) 25 MG tablet Take 12.5 mg by mouth at bedtime 06/13/2023 Active metoprolol succinate ER (TOPROL XL) 200 MG 24 hr tablet Take 200 mg by mouth daily Active Active Problems Problem Noted Date Diagnosed Date Dyspnea on exertion 01/21/2024 Bilateral pleural effusion 01/21/2024 Near syncope 01/21/2024 Cellulitis and abscess of leg, except foot 08/02 Social History Tobacco Use Types Packs/Day Years Used Date Smoking Tobacco: Former Cigarettes 1.5 50 Smokeless Tobacco: Never Tobacco Cessation:Counseling Given: Not Answered Alcohol Use Standard Drinks/Week Comments Yes 0 (1 standard drink = 0.6 oz pur e alcohol) Adolescent Education Answer Date Record ed Getting School Help Needed Not on file 07/24 Sex and Gender Information Value Date Recorded Sex Assigned at Not on file Gender Identity Not on file Sexual Orientation Not on file Last Filed Vital Signs Vital Sign Reading Time Taken Comments Blood Pressure 102/69 01/22/2024 3:22 PM CDT Pulse 53 01/22/2024 3:22 PM CDT Temperature 36.8 ??C (98.2 ??F) 01/22/2024 3:22 PM CD T Respiratory Rate 20 01/22/2024 3:22 PM CDT Oxygen Saturation 94% 01/22/2024 3:22 PM CDT Inhaled Oxygen Concentration - - Weight 112.6 kg (248 lb 4.8 oz) 01/22/2024 6:19 AM CDT Height 177.8 cm (5' 10) 01/21/2024 2:05 PM CDT Body Mass Index 35.63 01/21/2024 2:05 PM CDT Plan of Treatment Not on file Procedures Procedure Name Priority Date/Time Associated Diagnosis Comments BASIC METABOLIC PANEL Routine 01/22/2024 5:[address] CHEST W/O CONTRAST STAT 01/20/2024 11:20 PM CDT from Last 3 Months or Most Recently Relevant to Health Maintenance Results * (ABNORMAL) Basic metabolic panel (01/22/2024 5:52 AM CDT) [facility] Signature Sodium 138 135 - 145 mmol/L 01/22/2024 6:21 AM CDT [facility] Comment:Reference intervals for this test were updated on 07/12/2023 to more accurately reflect our healthy population. There may be differences in the flagging of prior results with similar values performed with this method. Interpretation of those prior results can be made in the context of the updated reference intervals. Potassium 4.5 3.4 - 5.3 mmol/L 01/22/2024 6:21 AM CDT [facility] Chloride 98 98 - 107 mmol/L 01/22/2024 6:21 AM CDT [facility] Carbon Dioxide (CO2) 27 22 - 29 mmol/L 01/22/2024 6:21 AM CDT [facility] Anion Gap 13 7 - 15 mmol/L 01/22/2024 6:21 AM CDT LABORATORY Urea Nitrogen 19.8 8.0 - 23.0 mg/dL 01/22/2024 6:21 AM CDT LABORATORY Creatinine 0.86 0.67 - 1.17 mg/dL 01/22/2024 6:21 AM CDT LABORATORY GFR Estimate 90 >60 mL/min/1. 73m2 01/22/2024 6:21 AM CDT LABORATORY Calcium 9.0 8.8 - 10.2 mg/dL 01/22/2024 6:21 AM CDT LABORATORY Glucose 130(H) 70 - 99 mg/dL 01/22/2024 6:21 AM CDT LABORATORY Blood STRUCTURE OF LEFT HAND / Unknown Venipuncture / Unknown 01/22/2024 5:52 AM CDT 01/22/2024 5:57 AM CDT Darren Toribio DO LAB - BLOOD ORDERA BLES [facility] [address] [facility] (1st floor, no room number) [place] [address] * Chest CT w/o contrast (01/20/2024 11:20 PM CDT) Anatomical Region Laterality Modality Chest, SUBRAD CT BODY, UMP CT CHEST, RAD CT Computed Tomography 01/20/2024 11:2 0 PM CDT Impressions 01/20/2024 11:38 PM CDT IMPRESSION: 1. ??Tiny bilateral pleural effusions. Otherwise negative noncontrast chest CT. Narrative 01/20/2024 11:38 PM CDT EXAM: CT CHEST W/O CONTRAST LOCATION: [facility] DATE: 01/20/2024 INDICATION: dyspnea, cough. Previous diagnosis of atrial fibrillation. Shortness of breath. COMPARISON: Chest x-ray earlier today. TECHNIQUE: CT chest without IV contrast. Multiplanar reformats were obtained. Dose reduction techniques were used. CONTRAST: None. FINDINGS: LUNGS AND PLEURA: Tiny, simple pleural effusions. The lungs are clear and airways are patent. MEDIASTINUM/AXILLAE: Cardiac pacing device. CORONARY ARTERY CALCIFICATION: Mild. UPPER ABDOMEN: No significant finding. 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 Procedure Note Macho Melvin MD - 01/20/2024 EXAM: CT CHEST W/O CONTRAST LOCATION: [facility] DATE: 01/20/2024 INDICATION: dyspnea, cough. Previous diagnosis of atrial fibrillation.Shortness of breath. COMPARISON: Chest x-ray earlier today. TECHNIQUE: CT chest without IV contrast. Multiplanar reformats wereobtained. Dose reduction techniques were used. CONTRAST: None. FINDINGS: LUNGS AND PLEURA: Tiny, simple pleural effusions. The lungs are clear andairways are patent. MEDIASTINUM/AXILLAE: Cardiac pacing device. CORONARY ARTERY CALCIFICATION: Mild. UPPER ABDOMEN: No significant finding. MUSCULOSKELETAL: Old right rib fractures and extensive degenerativeankylosis throughout the thoracic spine. IMPRESSION: 1. Tiny bilateral pleural effusions. Otherwise negative noncontrast chestCT. Sheron Michel MD IMG CT ORDERABLE S from Last 3 Months or Most Recently Relevant to Health Maintenance Advance Directives For more information, please contact: [phone] * Full Code (Latest Code Status on File) Date Activated Date Inactivated Comments 01/21/2024 2:26 AM 01/22/2024 8:44 PM All basic and advanced life-sustaining interventions are performed as appropriate Question Answer Comments Code status determined by: Discussion with patie nt/ legal decision maker Care Teams Dental Sales Representative Relationship Specialty Start Date End Date No Ref-Primary, Physician PCP - General 06/03/21
--- OUTSIDE RECORDS SUMMARY | 2024-05-07 20:13 | XMS_ITS | Clinical Summary ---
Author Organization [facility] Address [address] [place] [id number] Care Team Providers Care Nurse Rn Bsn Name Role Phone No Ref-Primary, Physician Primary [...] 01/21/2024 2:05 PM CDT Plan of Treatment Health Maintenance Due Date Last Done Comments ADVANCE CARE PLANNING 1948 ANNUAL REVIEW OF HM ORDERS 1948 CT COLONOGRAPHY 1948 FIT 1948 FLEX SIG 1948 LIPID 1948 sDNA (Cologuard) 1948 COLONOSCOPY 1958 COLORECTAL CANCER SCREENING 1958 HEPATITIS C SCREENING 1966 ZOSTER IMMUNIZATION (1 of 2) 1998 RSV VACCINE ( & 60+) (1 - 1-dose 60+ series) 2008 AORTIC ANEURYSM SCREENING (SYSTEM ASSIGNED) 2013 FALL RISK ASSESSMENT 2013 MEDICARE ANNUAL WELLNESS VISIT 2013 Pneumococcal Vaccine: 65+ Years (1 of 1 - PCV) 2013 COVID-19 Vaccine (4 - 2022- season) 2023 10/29/2021, 02/24/2021, 01/27/2021 PHQ-2 (once per calendar year) 2023 INFLUENZA VACCINE (#1) 2024 07/18/2017, 2015 LUNG CANCER SCREENING 01/19/2025 01/20/2024, 016 GLUCOSE 01/21/2027 01/22/2024, 04/0 03/2024, 01/21/2024, Additional history exists DTAP/TDAP/TD IMMUNIZATION (2 - Td or Tdap) 12/25/2032 12/25/2022, 10/25/2001 HPV IMMUNIZATION Aged Out No longer e ligible based on patient's age to complete this topic IPV IMMUNIZATION Aged Out No longer e ligible based on patient's age to complete this topic MENINGITIS IMMUNIZATION Aged Out No l onger eligible based on patient's age to complete this topic RSV MONOCLONAL ANTIBODY Aged Out No l onger eligible based on patient's age to complete this topic Procedures Procedure Name Priority Date/Time Associated Diagnosis Comments BASIC METABOLIC PANEL Routine 01/22/2024 5:[address] CHEST W/O CONTRAST STAT 01/20/2024 11:20 PM CDT from Last 3 Months or Most Recently Relevant to Health Maintenance Results * (ABNORMAL) Basic metabolic panel (01/22/2024 5:52 AM CDT) Sodium 138 135 - 145 mmol/L 01/22/2024 [...] - 15 mmol/L 01/22/2024 6:21 AM CDT [facility] Urea Nitrogen 19.8 8.0 - 23.0 mg/dL 01/22/2024 6:21 AM CDT [facility] Creatinine 0.86 0.67 - 1.17 mg/dL 01/22/2024 6:21 AM CDT [facility] GFR Estimate 90 >60 mL/min/1. 73m2 01/22/2024 6:21 AM CDT [facility] Calcium 9.0 8.8 - 10.2 mg/dL 01/22/2024 6:21 AM CDT [facility] Glucose 130(H) 70 - 99 mg/dL 01/22/2024 6:21 AM CDT [facility] Blood STRUCTURE OF LEFT HAND / Unknown Venipuncture / Unknown 01/22/2024 5:52 AM CDT 01/22/2024 5:57 AM CDT Darren Toribio DO LAB - [facility] [address] Lab (1st floor, no room number) [place] [id number] * Chest CT w/o contrast (01/20/2024 11:20 PM CDT) Anatomical Region Laterality Modality Chest, SUBRAD CT BODY, UMP CT CHEST, RAD CT Computed Tomography 01/20/2024 11:2 0 PM CDT Impressions 01/20/2024 11:38 PM CDT IMPRESSION: 1. ??Tiny bilateral pleural effusions. Otherwise negative noncontrast chest CT. Narrative 01/20/2024 11:38 PM CDT EXAM: CT CHEST W/O CONTRAST LOCATION: [facility] DATE: 01/20/2024 INDICATION: dyspnea, cough. Previous diagnosis [...] 01/20/2024 EXAM: CT CHEST W/O CONTRAST LOCATION: [facility] DATE: 01/20/2024 INDICATION: dyspnea, cough. Previous diagnosis [...] Advance Directives For more information, please contact: [phone] * Full Code (Latest Code Status on File) Date Activated Date Inactivated Comments 01/21/2024 2:26 AM 01/22/2024 8:44 PM All basic and advanced life-sustaining interventions are performed as appropriate Question Answer Comments Code status determined by: Discussion with nelsye nt/ legal decision maker Care Teams Nurse Rn Bsn Relationship Specialty Start Date End Date No Ref-Primary, Physician PCP - General 06/03/21
== END 2024-05-07 20:06 | disposition home or self-care (01) ==
LOC: SLEEP 20:11
PROVIDERS: Visit Provider Nurse Practitioner
DX: G47.33 Obstructive sleep apnea (adult) (pediatric) (principal)
CPT/HCPCS: 95811